=== PATIENT | male | born 1935 | race African-American/Black ===

== ENCOUNTER 2020-10-25 19:39 | Inpatient (IN) ==
--- NOTE | 2020-10-25 20:20 | Emergency Department Note ---
Weakness HPI General Chief complaint: Weakness Stated complaint: fever, increased weakness falls Time Seen by Provider: 10/25/20 19:58 Source: patient and RN notes reviewed Mode of arrival: EMS Limitations: no limitations History of Present Illness HPI Narrative: Narrative: This patient got his second Covid vaccine a couple of days ago but now has developed shortness of breath fever and is Covid positive. He is also had some diarrhea. No headache no chest pain slight cough. Generalized weakness. Related Data Home Medications Medication Instructions Recorded Confirmed alfuzosin 10 mg PO HS 02/14/16 09/29/16 allopurinol 300 mg PO HS 02/14/16 09/29/16 aspirin 81 mg CHEWED DAILY 02/14/16 09/29/16 atorvastatin 20 mg PO HS 02/14/16 09/29/16 colchicine 0.6 mg PO DAILY 02/14/16 09/29/16 meclizine 25 mg PO DAILYP PRN 02/14/16 09/29/16 brimonidine-timolol 2 drp BOTH EYES Q12H 05/28/16 09/29/16 budesonide-formoterol 2 puff IH BID 05/28/16 09/29/16 difluprednate 1 drp OU DAILY 05/28/16 09/29/16 loteprednol etabonate 1 drp RIGHT EYE DAILY 07/08/16 09/29/16 Symbicort Aero See Rx Instructions INHALATION 07/23/16 09/29/16 difluprednate 0.05 % eye drops See Rx Instructions OPHTHALMIC 07/23/16 09/29/16 .COMPLEX ferrous gluconate 324 mg (36 mg See Rx Instructions PO QDAY 07/23/16 09/29/16 iron) tablet fexofenadine 180 mg tablet 180 mg PO QDAY 07/23/16 09/29/16 propranolol 20 mg tablet 10 mg PO .COMPLEX 07/23/16 09/29/16 Previous Rx's Medication Instructions Recorded polyethylene glycol 3350 17 17 g PO BID #1054 each 06/04/17 gram/dose oral powder Allergies Allergy/AdvReac Type Severity Reaction Status Date / Time No Known Drug Allergies Allergy Verified 09/29/16 14:32 Review of Systems ROS ROS Narrative: Narrative: All systems ED: reviewed and negative except as stated. PFSH Narrative Patient History Narrative: Narrative: Medical/Surgical/Family History All Active Problems (Updated 10/25/20 @ 21:33 by Omar Keith MD) COVID-19 (Acute) Abdominal aortic aneurysm greater than 39 mm in diameter (Acute) Ulceration of rectal mucous membrane (Acute) Glaucoma (Chronic) Hypertension (Chronic) COPD (chronic obstructive pulmonary disease) (Chronic) CAD (coronary artery disease) (Chronic) Equinus deformity of foot, acquired (Chronic) Hammertoe (Chronic) Hallux valgus (Chronic) Elevated C-reactive protein (Chronic) Other disorders of plasma protein metabolism (Chronic) Ankle pain, chronic (Chronic) Sarcoidosis (Chronic) CKD (chronic kidney disease), stage II (Chronic) Lung nodule (Chronic) 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) Cerebral artery occlusion with cerebral infarction (Chronic) Orthostatic hypotension (Chronic) Leg pain, left (Chronic) Decreased carotid pulse (Chronic) Anemia, iron deficiency (Chronic) Dry skin (Chronic) Carotid artery stenosis (Chronic) Anemia (Chronic) Hyperlipidemia (Chronic) Pain, joint, shoulder, left (Chronic) Cough syncope (Chronic) Skin lesion (Chronic) Seborrheic keratosis (Chronic) Benign mole (Chronic) Lentigo (Chronic) Sebaceous cyst (Chronic) Benign positional vertigo (Chronic) Vertigo (Chronic) 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) Constipation (Chronic) Lower gastrointestinal hemorrhage (Acute) Near syncope (Chronic) Dyspnea (Chronic) Gout (Chronic) Renal insufficiency (Chronic) Hypercholesterolemia (Chronic) Anemia associated with acute blood loss (Chronic) Medical History (Updated 10/25/20 @ 21:33 by Omar Keith MD) Adenocarcinoma of prostate (Chronic) Anemia (Chronic) Anemia associated with acute blood loss (Chronic) Anemia, iron deficiency (Chronic) Ankle pain, chronic (Chronic) Benign mole (Chronic) trunk Benign positional vertigo (Chronic) CAD (coronary artery disease) (Chronic) Carotid artery stenosis (Chronic) left Cerebral artery occlusion 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), stage II (Chronic) Constipation (Chronic) COPD (chronic obstructive pulmonary disease) (Chronic) Cough syncope (Chronic) Decreased carotid pulse (Chronic) Dry skin (Chronic) Dyspnea (Chronic) Elevated C-reactive protein (Chronic) Equinus deformity of foot, acquired (Chronic) Glaucoma (Chronic) Gout (Chronic) Hallux valgus (Chronic) Hammertoe (Chronic) Hypercholesterolemia (Chronic) Hyperlipidemia (Chronic) Hypertension (Chronic) 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) Leg pain, left (Chronic) Lentigo (Chronic) Lower gastrointestinal hemorrhage (Acute) Lung nodule (Chronic) Near syncope (Chronic) Orthostatic hypotension (Chronic) Other disorders of plasma protein metabolism (Chronic) Pain, joint, shoulder, left (Chronic) Renal insufficiency (Chronic) Sarcoidosis (Chronic) Sebaceous cyst (Chronic) Seborrheic keratosis (Chronic) Skin lesion (Chronic) Vertigo (Chronic) Vertigo of central origin (Chronic) Surgical History (Updated 01/29/17 @ 14:28 by [employer]) History of left knee replacement (Chronic) 2009 plus two other procedures History of left shoulder replacement (Chronic) 2016 History of right hip replacement (Chronic) 2006 History of right knee joint replacement (Chronic 02/21/04) History of surgery (Chronic) Seed implantation-prostate carcinoma History of tonsillectomy and adenoidectomy (Chronic) 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) Family History (Updated 07/23/16 @ 16:09 by Eulalia Riojas) Other No pertinent family history Social History Smoking Status: Former smoker Alcohol Intake Frequency: a few times a month Substance Use: does not use Exam Narrative Narrative: Narrative: General Limitations: no limitations Head Head: Present atraumatic, normocephalic and normal inspection Eye Eye: Present normal appearance and EOMI; Absent scleral icterus and conjunctival injection ENT ENT: Present normal exam, normal oropharynx and mucous membranes moist Neck Neck: Present normal inspection and full ROM Chest Chest: Present normal inspection and symmetric chest wall rise Respiratory Respiratory: Present normal lung sounds bilaterally; Absent respiratory distress, rales/crackles and wheezes Cardiovascular Cardiovascular: Present regular rate, normal rhythm and normal heart sounds Adbominal Abdominal: Present soft; Absent distention and tenderness Extremities Extremities: Present normal inspection and full ROM; Absent pedal edema and pretibial edema Neurological Neurological: Present alert Psychiatric Psychiatric: Present normal affect Skin Skin: Present warm (WNL) and dry; Absent diaphoresis Course Vital Signs Vital signs: Vital Signs Temperature 102.1 F H 10/25/20 19:45 Pulse Rate 119 H 10/25/20 19:45 Respiratory Rate 20 10/25/20 19:45 Blood Pressure 181/107 10/25/20 19:45 Pulse Oximetry (%) 93 10/25/20 19:45 Temperature 102.7 F H 10/25/20 21:15 Pulse Rate 103 H 10/25/20 21:15 Respiratory Rate 16 10/25/20 21:15 Blood Pressure 117/67 10/25/20 21:01 Pulse Oximetry (%) 98 10/25/20 21:15 MDM MDM Narrative Medical decision making narrative: Narrative: This patient has Covid 19 syndrome and will be admitted to the hospital by Dr. Lugo. I ordered blood cultures gave Rocephin and Zithromax and Decadron. His GFR is too low to give remdesivir Lab Data Lab results reviewed: Yes I reviewed the patient's lab results. Lab results narrative: Patient was Covid positive his creatinine today is 2.1 lactic acid 3.8 Result diagrams: 10/25/20 20:07 10/25/20 20:07 Labs: Lab Results 10/25/20 10/25/20 10/25/20 Range/Units 20:07 20:07 20:07 WBC 7.4 (4.5-11.0) K/mcL RBC 4.78 (4.50-5.90) M/mcL Hgb 13.9 (13.5-16.5) g/dL Hct 41.9 (41.0-55.0) % MCV 87.7 (80.0-100.0) fL MCH 29.1 (26.0-34.0) pg MCHC 33.2 (31.0-36.0) g/dL RDW 13.2 (11.5-14.5) % Plt Count 128 L (140-440) K/mcL MPV 11.2 H (7.4-10.4) fL Neut % (Auto) 66.9 (38.0-78.0) % Lymph % (Auto) 26.8 (15.0-49.0) % [place] % (Auto) 6.2 (1.0-12.0) % Eos % (Auto) 0 (0.0-7.0) % Baso % (Auto) 0.1 (0.0-2.0) % Lymph # (Auto) 1.98 (1.50-4.80) K/mcL [place] # (Auto) 0.46 (0.10-0.90) K/mcL Eos # (Auto) 0 (0.00-0.70) K/mcL Baso # (Auto) 0.01 (0.00-0.20) K/mcL Absolute Neutrophils 4.94 (1.80-8.00) K/mcL VBG Lactic Acid 3.8 H (0.5-2.0) mmol/L Sodium 135 (133-145) mmol/L Potassium 4.6 (3.3-5.1) mmol/L Chloride 97 (96-108) mmol/L Carbon Dioxide 22 (22-30) mmol/L Anion Gap 16.0 (8.0-16.0) BUN 48 H (8-23) mg/dL Creatinine 2.1 H (0.7-1.2) mg/dL GFR Calculation 28 Glucose 114 H (70-105) mg/dL Calcium 9.2 (8.6-10.4) mg/dL Total Bilirubin 0.9 (0.1-1.0) mg/dL AST 33 (<40) U/L ALT 17 (<40) U/L Alkaline Phosphatase 72 (39-117) U/L Total Protein 8.1 (5.9-8.4) gm/dL Albumin 3.8 (3.2-5.2) gm/dL Globulin 4.3 H (2.2-3.7) gm/dL Albumin/Globulin Ratio 0.9 L (1.0-2.3) ED POC Tests ED POC Tests: [facility] - SARS Antigen Positive Radiology Data Radiology results reviewed: Yes I reviewed the patient's radiology results. Radiology results narrative: Chest x-ray was not very remarkable Discharge Plan Patient/Caregiver Discharge Instructions Pt seen by CHART CLERK/PA only: No Clinical Impression: COVID-19 Patient Disposition: Xfer As Inpt ([facility]) Follow up with: Viktoriya Fraire ARNP [Primary Care Provider] - Prescriptions: No Action polyethylene glycol 3350 17 gram/dose powder 17 g PO BID Qty: 1054 RF: 12 Symbicort Aero See Rx Instructions INHALATION RF: 0 difluprednate [Durezol] 0.05 % drops See Rx Instructions OPHTHALMIC .COMPLEX RF: 0 ferrous gluconate 324 mg (36 mg iron) tablet See Rx Instructions PO QDAY RF: 0 propranolol 20 mg tablet 10 mg PO .COMPLEX RF: 0 fexofenadine 180 mg tablet 180 mg PO QDAY RF: 0 atorvastatin 20 MG tablet 20 mg PO HS RF: 0 meclizine 25 MG tablet 25 mg PO DAILYP PRN (Reason: Vertigo) RF: 0 aspirin 81 MG tablet,chewable 81 mg CHEWED DAILY RF: 0 allopurinol 300 MG tablet 300 mg PO HS RF: 0 alfuzosin 10 MG tablet extended release 24 hr 10 mg PO HS RF: 0 colchicine 0.6 MG tablet 0.6 mg PO DAILY RF: 0 budesonide-formoterol 10.2 GM HFA aerosol inhaler 2 puff IH BID RF: 0 brimonidine-timolol 5 ML drops 2 drp BOTH EYES Q12H RF: 0 difluprednate 5 ML drops 1 drp OU DAILY RF: 0 loteprednol etabonate 5 ML drops,suspension 1 drp RIGHT EYE DAILY RF: 0
[2020-10-25] MEDS ORDERED: ACETAMINOPHEN 325 MG TABLET PO ONE (20:21)
[2020-10-25 20:55] LABS: Basophils # (Auto) 0.01 K/mcL (0.00-0.20); Basophils % (Auto) 0.1 % (0.0-2.0); Eosinophils # (Auto) 0 K/mcL (0.00-0.70); Eosinophils % (Auto) 0 % (0.0-7.0); Hematocrit 41.9 % (41.0-55.0); Hemoglobin 13.9 g/dL (13.5-16.5); Lymphocytes # (Auto) 1.98 K/mcL (1.50-4.80); Lymphocytes % (Auto) 26.8 % (15.0-49.0); Mean Cell Volume 87.7 fL (80.0-100.0); Mean Corpuscular HGB Conc 33.2 g/dL (31.0-36.0); Mean Platelet Volume 11.2 fL (7.4-10.4); Monocytes # (Auto) 0.46 K/mcL (0.10-0.90); Monocytes % (Auto) 6.2 % (1.0-12.0); Neutrophils % (Auto) 66.9 % (38.0-78.0); Platelet Count 128 K/mcL (140-440); RBC 4.78 M/mcL (4.50-5.90); Red Cell Distribution Width 13.2 % (11.5-14.5); WBC 7.4 K/mcL (4.5-11.0)
[2020-10-25] MEDS ORDERED: 0.9 % SODIUM CHLORIDE 1,000 ML IV ONE (21:05)
[2020-10-25] MEDS ORDERED: cefTRIAXone 1 GM VIAL IV ONE (21:09)
[2020-10-25] MEDS ORDERED: AZITHROMYCIN 500 MG in DEXTROSE 5% IN WATER 250 ML IV ONE (21:09)
[2020-10-25 21:12] LABS: ALT/SGPT 17 U/L (<40); AST/SGOT 33 U/L (<40); Albumin 3.8 gm/dL (3.2-5.2); Albumin/Globulin Ratio 0.9 (1.0-2.3); Alkaline Phosphatase 72 U/L (39-117); Bilirubin,Total 0.9 mg/dL (0.1-1.0); Blood Urea Nitrogen 48 mg/dL (8-23); Calcium 9.2 mg/dL (8.6-10.4); Carbon Dioxide 22 mmol/L (22-30); Chloride 97 mmol/L (96-108); Globulin 4.3 gm/dL (2.2-3.7); Glomerular Filtration Rate 28; Glucose 114 mg/dL (70-105)
[2020-10-25] MEDS ORDERED: DEXAMETHASONE 10 MG/ML VIAL IV ONE (21:29)
--- NOTE | 2020-10-25 21:41 | Internal Med History&Physical ---
HPI History of Present Illness Patient information: Note initiated : 10/25/20 at 9:41 pm Service Date, if different from initiated Date: [] Patient: Mars Faye a 85 y/o M admitted on for fever, increased weakness falls. Chief Complaint: History of present illness: Mr. Faye is a 85 year old M with a history of scleroderma/COPD/AAA who lives with his in [place]. Patient presents to the ER with worsening shortness of breath, fever over the last 24 hours. He has become profoundly weak limiting his ADLs. Initial work-up was consistent with COVID-19 pneumonia on chest imaging,positive Zo. Patient was hypoxic requiring 2 L oxygen/elevated lactate at 3.8, acute kidney injury with creatinine 2.1. Patient was started on antibiotic coverage after cultures were drawn. Hospitalist service was consulted. Notably patient just received his second Covid immunization couple of days ago. At the time of evaluation patient is alert. He was able to answer most the questions. He is in moderate respiratory distress requiring 2 L oxygen. He endorses to history as above. Denies diarrhea, dysuria, headache, photophobia endorses myalgia, weakness, sweats chills and fever. He denies nausea Review of systems 10 point review system was performed and is negative except for ones discussed above PFSH PFSH All Active Problems (Updated 10/25/20 @ 21:33 by Omar Keith MD) COVID-19 (Acute) Abdominal aortic aneurysm greater than 39 mm in diameter (Acute) Ulceration of rectal mucous membrane (Acute) Glaucoma (Chronic) Hypertension (Chronic) COPD (chronic obstructive pulmonary disease) (Chronic) CAD (coronary artery disease) (Chronic) Equinus deformity of foot, acquired (Chronic) Hammertoe (Chronic) Hallux valgus (Chronic) Elevated C-reactive protein (Chronic) Other disorders of plasma protein metabolism (Chronic) Ankle pain, chronic (Chronic) Sarcoidosis (Chronic) CKD (chronic kidney disease), stage II (Chronic) Lung nodule (Chronic) 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) Cerebral artery occlusion with cerebral infarction (Chronic) Orthostatic hypotension (Chronic) Leg pain, left (Chronic) Decreased carotid pulse (Chronic) Anemia, iron deficiency (Chronic) Dry skin (Chronic) Carotid artery stenosis (Chronic) Anemia (Chronic) Hyperlipidemia (Chronic) Pain, joint, shoulder, left (Chronic) Cough syncope (Chronic) Skin lesion (Chronic) Seborrheic keratosis (Chronic) Benign mole (Chronic) Lentigo (Chronic) Sebaceous cyst (Chronic) Benign positional vertigo (Chronic) Vertigo (Chronic) 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) Constipation (Chronic) Lower gastrointestinal hemorrhage (Acute) Near syncope (Chronic) Dyspnea (Chronic) Gout (Chronic) Renal insufficiency (Chronic) Hypercholesterolemia (Chronic) Anemia associated with acute blood loss (Chronic) Medical History (Updated 10/25/20 @ 21:33 by Omar Keith MD) Adenocarcinoma of prostate (Chronic) Anemia (Chronic) Anemia associated with acute blood loss (Chronic) Anemia, iron deficiency (Chronic) Ankle pain, chronic (Chronic) Benign mole (Chronic) trunk Benign positional vertigo (Chronic) CAD (coronary artery disease) (Chronic) Carotid artery stenosis (Chronic) left Cerebral artery occlusion 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), stage II (Chronic) Constipation (Chronic) COPD (chronic obstructive pulmonary disease) (Chronic) Cough syncope (Chronic) Decreased carotid pulse (Chronic) Dry skin (Chronic) Dyspnea (Chronic) Elevated C-reactive protein (Chronic) Equinus deformity of foot, acquired (Chronic) Glaucoma (Chronic) Gout (Chronic) Hallux valgus (Chronic) Hammertoe (Chronic) Hypercholesterolemia (Chronic) Hyperlipidemia (Chronic) Hypertension (Chronic) 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) Leg pain, left (Chronic) Lentigo (Chronic) Lower gastrointestinal hemorrhage (Acute) Lung nodule (Chronic) Near syncope (Chronic) Orthostatic hypotension (Chronic) Other disorders of plasma protein metabolism (Chronic) Pain, joint, shoulder, left (Chronic) Renal insufficiency (Chronic) Sarcoidosis (Chronic) Sebaceous cyst (Chronic) Seborrheic keratosis (Chronic) Skin lesion (Chronic) Vertigo (Chronic) Vertigo of central origin (Chronic) Surgical History (Updated 01/29/17 @ 14:28 by [employer]) History of left knee replacement (Chronic) 2009 plus two other procedures History of left shoulder replacement (Chronic) 2016 History of right hip replacement (Chronic) 2006 History of right knee joint replacement (Chronic 02/21/04) History of surgery (Chronic) Seed implantation-prostate carcinoma History of tonsillectomy and adenoidectomy (Chronic) 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) Family History (Updated 07/23/16 @ 16:09 by Eulalia Riojas) Other No pertinent family history Social History marital status: occupational status: retired physical activity: additional details: [employer] smoking status: Never smoker alcohol intake frequency: a few times a month substance use type: does not use MEDS/ALLERGIES Home Medications and Allergies Home Medications Medication Instructions Recorded Confirmed Type budesonide-formoterol 2 puff IH BID 05/28/16 09/29/16 History difluprednate 1 drp OU DAILY 05/28/16 09/29/16 History loteprednol etabonate 1 drp RIGHT EYE DAILY 07/08/16 09/29/16 History Symbicort Aero See Rx Instructions INHALATION 07/23/16 09/29/16 History difluprednate 0.05 % eye drops See Rx Instructions OPHTHALMIC 07/23/16 09/29/16 History .COMPLEX brimonidine 1 % OPHTHALMIC (EYE) BID 10/26/20 10/26/20 History magnesium oxide 420 mg PO QDAY 10/26/20 10/26/20 History prednisolone acetate 1 drp OPHTHALMIC (EYE) DAILY 10/26/20 10/26/20 History timolol maleate 1 % OPHTHALMIC (EYE) BID 10/26/20 10/26/20 History Allergies Allergy/AdvReac Type Severity Reaction Status Date / Time No Known Drug Allergies Allergy Verified 09/29/16 14:32 EXAM Constitutional Vitals: Temp Pulse Resp BP Pulse Ox 102.5 F H 111 H 18 101/67 96 10/25/20 21:31 10/25/20 21:31 10/25/20 21:31 10/25/20 21:31 10/25/20 21:31 Anxious currently on 2 L oxygen Head normocephalic Oral cavity moist No ear nose discharge Eye movement symmetrical Neck supple no lymphadenopathy S1-S2 regular tachycardia Minimal labored breathing/2 L oxygen Nondistended nontender abdomen Lower extremity no cyanosis clubbing or joint swelling Skin no suspicious lesion Psych no hallucination Neuro normal higher function, GCS 15 DATA Data Completed and Pending Labs: Labs from last 24 hours 10/25/20 10/25/20 10/25/20 20:07 20:07 20:07 WBC 7.4 RBC 4.78 Hgb 13.9 Hct 41.9 MCV 87.7 MCH 29.1 MCHC 33.2 RDW 13.2 Plt Count 128 L MPV 11.2 H Neut % (Auto) 66.9 Lymph % (Auto) 26.8 [place] % (Auto) 6.2 Eos % (Auto) 0 Baso % (Auto) 0.1 Lymph # (Auto) 1.98 [place] # (Auto) 0.46 Eos # (Auto) 0 Baso # (Auto) 0.01 Absolute Neutrophils 4.94 VBG Lactic Acid 3.8 H Sodium 135 Potassium 4.6 Chloride 97 Carbon Dioxide 22 Anion Gap 16.0 BUN 48 H Creatinine 2.1 H GFR Calculation 28 Glucose 114 H Calcium 9.2 Total Bilirubin 0.9 AST 33 ALT 17 Alkaline Phosphatase 72 Total Protein 8.1 Albumin 3.8 Globulin 4.3 H Albumin/Globulin Ratio 0.9 L A/P Narrative A/P Narrative: * Covid pneumonia-GFR precludes remdesivir use. On dexamethasone/empiric antib iotic coverage for superinfection * Sepsis with elevated lactate and endorgan dysfunction. Continue crystalloid/venous lactate trending/cultures/broad antibiotic coverage * Acute kidney injury secondary sepsis endorgan dysfunction. Continue crystalloid/monitor renal function/avoid nephrotoxins * Severe weakness secondary to COVID-19. Continue directed therapies * History of gout continue allopurinol * History of hyperlipidemia on statin * History of CAD on aspirin statin/propranolol glaucoma/brimonidine * History of COPD not on oxygen, on Symbicort/budesonide * DNR * Prophylaxis Heparin Plan * inpatient PCU admission * Broad antibiotic coverage * Inflammatory maxilla/dexamethasone/contact precaution * Pre-existing medical condition management as above * Close monitoring monitoring * PT OT nutrition support * Discharge planning Time Spent With Patient Time: Total time spent is greater than 50% in coordination of care (as d ocumented) at patient's floor/unit and/or counseling patient:
[2020-10-25] MEDS ORDERED: POTASSIUM CHLORIDE 40 MEQ in DEXTROSE 5% IN WATER 500 ML IV PRN (22:52)
[2020-10-25] MEDS ORDERED: ONDANSETRON 4 MG/2 ML VIAL IV PRN (22:52)
[2020-10-25] MEDS ORDERED: ACETAMINOPHEN 325 MG TABLET PO PRN (22:52)
[2020-10-25] MEDS ORDERED: NEUTRA PHOS 1 PACKET PO PRN (22:52)
[2020-10-25] MEDS ORDERED: BISACODYL 10 MG SUPP.RECT PR PRN (22:52)
[2020-10-25] MEDS ORDERED: MELATONIN 3 MG TABLET PO PRN (22:52)
[2020-10-25] MEDS ORDERED: VANCOMYCIN PER PHARMACY IV SCH (22:52)
[2020-10-25] MEDS ORDERED: POTASSIUM CHLORIDE 20 MEQ PACKET PO PRN (22:52)
[2020-10-25] MEDS ORDERED: MAGNESIUM SULFATE 2 GM/50 ML BAG IV PRN (22:52)
[2020-10-25] MEDS ORDERED: POLYETHYLENE GLYCOL 3350 17 GM PACKET PO PRN (22:52)
[2020-10-25] MEDS ORDERED: ONDANSETRON 4 MG ODT TABLET SL PRN (22:52)
[2020-10-25] MEDS ORDERED: ACETAMINOPHEN 650 MG/65 ML BAG IV PRN (22:52)
[2020-10-25] MEDS ORDERED: CEFEPIME 2 GM in DEXTROSE 5% IN WATER 50 ML IV SCH (22:52)
[2020-10-25] MEDS ORDERED: AZITHROMYCIN 500 MG in DEXTROSE 5% IN WATER 250 ML IV SCH (22:52)
[2020-10-25] MEDS ORDERED: VANCOMYCIN 1,250 MG in 0.9 % SODIUM CHLORIDE 500 ML IV ONE (22:53)
[2020-10-25] MEDS ORDERED: CEFEPIME 1 GM VIAL ONE (23:07)
[2020-10-25] MEDS: PIPERACILLIN SODIUM/TAZOBACTAM 3.375 GM in DEXTROSE 5% IN WATER 50 ML IV SCH (23:44)
[2020-10-25] MEDS: 0.9 % SODIUM CHLORIDE 10 ML SYRINGE IV SCH (23:46)
[2020-10-26] MEDS: 0.9 % SODIUM CHLORIDE 1,000 ML IV SCH (00:15)
[2020-10-26] MEDS: PIPERACILLIN SODIUM/TAZOBACTAM 3.375 GM in DEXTROSE 5% IN WATER 50 ML IV SCH (05:30)
[2020-10-26] MEDS: 0.9 % SODIUM CHLORIDE 10 ML SYRINGE IV SCH ×3 (05:31→20:32)
--- NOTE | 2020-10-26 05:43 | XRay Report ---
INDICATION: sob, covid pos TECHNIQUE: AP portable semiupright chest x-ray COMPARISON: Previous chest x-rays dated 07/09/2016 and 07/07/2016 FINDINGS: Lungs:Mild bibasilar interstitial infiltrate, left worse than right. Findings are nonspecific. Findings may be due to benign volume loss. This patient is covid positive and covid pneumonia is possible. Findings are new since 07/09/2016 No parenchymal consolidation There is a small focal density in the right upper lung. This may be a small mass. Appearance is relatively benign but appears to be new since 07/09/2016. Chest CT scan is recommended for further evaluation. Heart, vascular:No significant cardiomegaly. Pulmonary vascularity is normal. No pulmonary edema or pulmonary congestion Mediastinum, vanna:No mediastinal widening. No hilar mass Pleura:No pleural fluid. No pleural-based mass or calcification Skeletal:Negative. IMPRESSION: 1. Mild bibasilar infiltrate, left worse than right 2. Possible right upper lung nodule, new since 07/09/2016 Interpreted and Authenticated by: Remy Nixon 10/26/20
[2020-10-26 06:33] LABS: Basophils # (Auto) 0.01 K/mcL (0.00-0.20); Basophils % (Auto) 0.2 % (0.0-2.0); Eosinophils # (Auto) 0 K/mcL (0.00-0.70); Eosinophils % (Auto) 0 % (0.0-7.0); Hematocrit 36.7 % (41.0-55.0); Hemoglobin 11.9 g/dL (13.5-16.5); Lymphocytes # (Auto) 0.95 K/mcL (1.50-4.80); Lymphocytes % (Auto) 20.2 % (15.0-49.0); Mean Cell Volume 89.7 fL (80.0-100.0); Mean Corpuscular HGB Conc 32.4 g/dL (31.0-36.0); Mean Platelet Volume 11.5 fL (7.4-10.4); Monocytes # (Auto) 0.21 K/mcL (0.10-0.90); Monocytes % (Auto) 4.5 % (1.0-12.0); Neutrophils % (Auto) 75.1 % (38.0-78.0); Platelet Count 101 K/mcL (140-440); RBC 4.09 M/mcL (4.50-5.90); Red Cell Distribution Width 13.2 % (11.5-14.5); WBC 4.7 K/mcL (4.5-11.0)
[2020-10-26 07:05] LABS: ALT/SGPT 15 U/L (<40); AST/SGOT 34 U/L (<40); Albumin 3.1 gm/dL (3.2-5.2); Albumin/Globulin Ratio 0.8 (1.0-2.3); Alkaline Phosphatase 59 U/L (39-117); Bilirubin,Direct < 0.2 mg/dL (<0.3); Bilirubin,Total 0.6 mg/dL (0.1-1.0); Blood Urea Nitrogen 48 mg/dL (8-23); Calcium 8.5 mg/dL (8.6-10.4); Carbon Dioxide 20 mmol/L (22-30); Chloride 101 mmol/L (96-108); Globulin 3.7 gm/dL (2.2-3.7); Glomerular Filtration Rate 32; Glucose 173 mg/dL (70-105); Lactate Dehydrogenase 280 U/L (135-225); Phosphorous 3.8 mg/dL (2.5-4.5); Triglycerides 110 mg/dL (<150)
[2020-10-26] MEDS ORDERED: BUDESONIDE 1 PUFF INHALER INH SCH (09:00)
[2020-10-26] MEDS: HEPARIN 5,000 UNIT/ML VIAL SQ SCH ×2 (10:19→20:30)
[2020-10-26] MEDS: DOCUSATE SODIUM 100 MG CAPSULE PO SCH ×2 (10:20→20:31)
[2020-10-26] MEDS: DEXAMETHASONE 4 MG TABLET PO SCH (10:20)
[2020-10-26] MEDS: MULTIVIT,THER IRON,CA,FA & MIN 1 TABLET PO SCH (10:20)
[2020-10-26] MEDS: CEFEPIME 1 GM in DEXTROSE 5% IN WATER 50 ML IV SCH ×2 (10:20→20:30)
--- NOTE | 2020-10-26 11:06 | Internal Med Progress Note ---
SUBJECTIVE Subjective Patient information: Note initiated : 10/26/20 at 11:03 am Service Date, if different from initiated Date: [] Patient: Mars Faye a 85 y/o M admitted on 10/25/20 for fever, increased weakness falls. Chief Complaint: [] Interval history: History of present illness: Mr. Faye is a 85 year old M with a history of scleroderma/COPD/AAA who lives with his in [place]. Patient presents to the ER with worsening shortness of breath, fever over the last 24 hours. He has become profoundly weak limiting his ADLs. Initial work-up was consistent with bibasilar pneumonia on chest imaging,positive COVID-19 Zo. Patient was hypoxic requiring 2 L oxygen/elevated lactate at 3.8, acute kidney injury with creatinine 2.1. Patient was started on antibiotic coverage after cultures were drawn. Hospitalist service was consulted. Notably patient just received his second Covid immunization couple of days ago. At the time of evaluation patient is alert. He was able to answer most the questions. He is in moderate respiratory distress requiring 2 L oxygen. He endorses to history as above. Denies diarrhea, dysuria, headache, photophobia endorses myalgia, weakness, sweats chills and fever. He denies nausea 10/26-patient clinically improved. No overnight events. No concerns per staff. Now on room air. Tolerating diet. Feels a lot better. White count 4.7creatinine down from 2.1-1.9. Constitutional Vitals: Vital Signs Temp Pulse Resp BP Pulse Ox 97.7 F 66 15 115/74 97 10/26/20 10:00 10/26/20 08:00 10/26/20 10:00 10/26/20 10:00 10/26/20 10:00 Period Temp Pulse Resp BP Sys/Harper Pulse Ox Last 24 Hr 96.7 F-103.4 F 63-119 13-22 93-181/59-107 91-98 Intake and Output 10/25/20 10/26/20 10/26/20 21:59 05:59 13:59 Intake Total 1000 528 600 Output Total 450 Balance 1000 78 600 Weight 80.739 kg 80.739 kg alert oriented On room air oxygen No telemetry events. Anxiety Intake & Output: Intake & Output 02/08/0410/26/20 10/26/20 21:59 05:59 13:59 Intake Total 1000 528 600 Output Total 450 Balance 1000 78 600 Weight 80.739 kg 80.739 kg Intake: IV 1000 288 600 Sodium Chloride 0.9% 1,000 ml @ 1000 Wide Open IV [facility] Rx#: [id number] Zithromax 500 mg In Dextrose 5% 238 in Water 250 ml @ 250 mls/hr IV ONCE ONE Rx#:[id number] Maxipime 2 gm In Dextrose 5% in 50 Water 50 ml @ 100 mls/hr IV Q12H [facility] Rx#:[id number] Zosyn 3.375 gm In Dextrose 5% 50 50 in Water 50 ml @ 100 mls/hr IV Q6H [facility] Rx#:[id number] Vancomycin 1,250 mg In Sodium 500 Chloride 0.9% 500 ml @ 333.3 mls/hr IV ONCE ONE Rx#: [id number] Oral 240 Output: Urine Catheter Amount 450 Other: Meal Breakfast Percent of Meal Consumed 75% Feeding Ability Independent Urine Appearance Clear Uretheral (Jj) Clear Clear Urine Color Dark Yellow Uretheral (Jj) Dark Yellow Dark Yellow Urine Odor Strong Uretheral (Jj) Normal Normal OBJ DATA Labs CBC & Chem 7: 10/26/20 05:10 10/26/20 05:10 Labs: Abnormal Lab Results 10/26/20 10/26/20 10/26/20 05:10 05:10 05:10 RBC 4.09 L Hgb 11.9 L Hct 36.7 L Plt Count 101 L MPV 11.5 H Lymph # (Auto) 0.95 L D-Dimer 9.93 H VBG Lactic Acid Carbon Dioxide 20 L BUN 48 H Creatinine 1.9 H Glucose 173 H Uric Acid 9.0 H Calcium 8.5 L Lactate Dehydrogenase 280 H Albumin 3.1 L Globulin Albumin/Globulin Ratio 0.8 L Procalcitonin 10/26/20 10/25/20 10/25/20 05:10 20:07 20:07 RBC Hgb Hct Plt Count MPV Lymph # (Auto) D-Dimer VBG Lactic Acid 3.8 H Carbon Dioxide BUN 48 H Creatinine 2.1 H Glucose 114 H Uric Acid Calcium Lactate Dehydrogenase Albumin Globulin 4.3 H Albumin/Globulin Ratio 0.9 L Procalcitonin 0.32 H 10/25/20 20:07 RBC Hgb Hct Plt Count 128 L MPV 11.2 H Lymph # (Auto) D-Dimer VBG Lactic Acid Carbon Dioxide BUN Creatinine Glucose Uric Acid Calcium Lactate Dehydrogenase Albumin Globulin Albumin/Globulin Ratio Procalcitonin Meds: Medications Acetaminophen (Tylenol) 650 mg PO Q4-6HP PRN; Protocol PRN Reason: Per Pain Protocol/Fever > 101 Last Admin: 10/26/20 10:20 Dose: 650 mg Documented by: Bisacodyl (Dulcolax) 10 mg CA Q2-3DAYS PRN PRN Reason: Constipation Budesonide (Pulmicort) 2 puff INH BID [facility] Last Admin: 10/26/20 10:10 Dose: Not Given Documented by: Dexamethasone (Decadron) 6 mg PO DAILY [facility] Last Admin: 10/26/20 10:20 Dose: 6 mg Documented by: Docusate Sodium (Colace) 100 mg PO BID [facility] Last Admin: 10/26/20 10:20 Dose: 100 mg Documented by: Heparin Sodium (Porcine) (Heparin) 5,000 unit SQ Q12 [facility] Last Admin: 10/26/20 10:19 Dose: 5,000 unit Documented by: Potassium Chloride 40 meq/ (Dextrose) 520 mls @ 130 mls/hr IV UD PRN PRN Reason: K+ = or < 3.5 Acetaminophen (Ofirmev) 650 mg in 65 mls @ 130 mls/hr IV Q6HP PRN; Protocol PRN Reason: Per Pain Protocol/Fever > 101 Magnesium Sulfate (Magnesium Sulfate) 2 gm in 50 mls @ 50 mls/hr IV UD PRN PRN Reason: MG = or < 1.7 Sodium Chloride (Sodium Chloride 0.9%) 1,000 mls @ 50 mls/hr IV .Q20H [facility] Stop: 10/28/20 10:51 Last Admin: 10/26/20 00:15 Dose: 50 mls/hr Documented by: Cefepime HCl 1 gm/ Dextrose 50 mls @ 100 mls/hr IV Q12H [facility]; Protocol Last Admin: 10/26/20 10:20 Dose: 100 mls/hr Documented by: Azithromycin 500 mg/ Dextrose 250 mls @ 250 mls/hr IV DAILY [facility]; Protocol Stop: 10/27/20 09:59 Iron Carb/Multivit/[place]/Folic Acid (Multivitamin W/Minerals) 1 tab PO DAILY [facility] Last Admin: 10/26/20 10:20 Dose: 1 tab Documented by: Melatonin (Melatonin 3mg Tablet) 3 mg PO HSP PRN PRN Reason: Insomnia Ondansetron HCl (Zofran Odt) 4 mg SL Q4-6HP PRN; Protocol PRN Reason: Nausea And Vomiting Ondansetron HCl (Zofran) 4 mg IV Q4-6HP PRN; Protocol PRN Reason: Nausea And Vomiting Polyethylene Glycol (Miralax) 17 gm PO DAILYP PRN PRN Reason: Constipation Potassium Chloride (Klor-Con) 40 meq PO DAILYP PRN PRN Reason: K+ < 3.5 Potassium/Phosphorus/Sodium (Neutra Phos) 2 packet PO DAILY PRN PRN Reason: PHOS <2.5 Senna/Docusate Sodium (Senna Plus Tablet) 1 tab PO [facility] Sodium Chloride (Saline Flush) 10 ml IV Q8 [facility] Last Admin: 10/26/20 05:31 Dose: 10 ml Documented by: Vancomycin HCl (Vancomycin Per Pharmacy) 1 order IV UD [facility]; Protocol A/P Narrative A/P Narrative: * Covid 19 pneumonia-GFR precludes remdesivir use. 20 improving on dexamethasone/empiric antibiotic coverage for superinfection * Sepsis with elevated lactate and endorgan dysfunction. Clinical improvement noted on antibiotic coverage/management per guidelines * Acute kidney injury secondary sepsis endorgan dysfunction. Creatinine downtrending. Avoid nephrotoxins * Severe weakness secondary to COVID-19. Continue directed therapies * History of gout continue allopurinol * History of hyperlipidemia on statin * History of CAD on aspirin statin/propranolol glaucoma/brimonidine * History of COPD not on oxygen, on Symbicort/budesonide * DNR * Prophylaxis Heparin Plan * Continue antibiotic coverage * Continue dexamethasone * Pre-existing medical condition management as above * PT OT nutrition support Time Spent With Patient Time: Total time spent is greater than 50% in coordination of care (as documented) at patient's floor/unit and/or counseling patient: QUALITY VTE Deep Vein Thrombosis/Pulmonary Embolism Present on Admission: No
[2020-10-26] MEDS: AZITHROMYCIN 500 MG in DEXTROSE 5% IN WATER 250 ML IV SCH (12:25)
[2020-10-26] MEDS: SENNOSIDES/DOCUSATE SODIUM 1 TAB TABLET PO SCH (20:31)
[2020-10-27] MEDS: 0.9 % SODIUM CHLORIDE 1,000 ML IV SCH ×3 (00:34→23:26)
[2020-10-27] MEDS: 0.9 % SODIUM CHLORIDE 10 ML SYRINGE IV SCH ×3 (05:32→21:11)
[2020-10-27 06:49] LABS: Vancomycin,Random 5.6 ug/mL
[2020-10-27 07:04] LABS: Basophils # (Auto) 0 K/mcL (0.00-0.20); Basophils % (Auto) 0 % (0.0-2.0); Eosinophils # (Auto) 0 K/mcL (0.00-0.70); Eosinophils % (Auto) 0 % (0.0-7.0); Hematocrit 39.9 % (41.0-55.0); Hemoglobin 12.6 g/dL (13.5-16.5); Lymphocytes # (Auto) 1.33 K/mcL (1.50-4.80); Lymphocytes % (Auto) 14.1 % (15.0-49.0); Mean Cell Volume 92.6 fL (80.0-100.0); Mean Corpuscular HGB Conc 31.6 g/dL (31.0-36.0); Mean Platelet Volume 11.6 fL (7.4-10.4); Monocytes # (Auto) 0.52 K/mcL (0.10-0.90); Monocytes % (Auto) 5.5 % (1.0-12.0); Neutrophils % (Auto) 80.4 % (38.0-78.0); Platelet Count 119 K/mcL (140-440); RBC 4.31 M/mcL (4.50-5.90); Red Cell Distribution Width 13.1 % (11.5-14.5); WBC 9.4 K/mcL (4.5-11.0)
[2020-10-27 07:28] LABS: ALT/SGPT 22 U/L (<40); AST/SGOT 33 U/L (<40); Albumin 3.2 gm/dL (3.2-5.2); Albumin/Globulin Ratio 0.8 (1.0-2.3); Alkaline Phosphatase 61 U/L (39-117); Bilirubin,Direct < 0.2 mg/dL (<0.3); Bilirubin,Total 0.4 mg/dL (0.1-1.0); Blood Urea Nitrogen 47 mg/dL (8-23); Calcium 8.9 mg/dL (8.6-10.4); Carbon Dioxide 19 mmol/L (22-30); Chloride 105 mmol/L (96-108); Globulin 3.8 gm/dL (2.2-3.7); Glomerular Filtration Rate 46; Glucose 131 mg/dL (70-105); Lactate Dehydrogenase 267 U/L (135-225); Phosphorous 3.1 mg/dL (2.5-4.5); Triglycerides 123 mg/dL (<150); Uric Acid 7.7 mg/dL (2.5-8.0)
--- NOTE | 2020-10-27 08:23 | XRay Report ---
INDICATION: Interval Change TECHNIQUE: AP portable semiupright chest x-ray COMPARISON: Previous examinations dated 10/25/2020, 07/09/2016 FINDINGS: Lungs:Mild left basilar atelectasis or infiltrate is unchanged since 10/25/2020. No new pulmonary parenchymal abnormalities. Possible subtle right upper lobe nodule is again identified. Heart, vascular:No significant cardiomegaly. Pulmonary vascularity is normal. No pulmonary edema or pulmonary congestion Mediastinum, vanna:No mediastinal widening. No hilar mass Pleura:No pleural fluid. No pleural-based mass or calcification Skeletal:Negative. IMPRESSION: No significant interval change since 10/25/2020 Interpreted and Authenticated by: Remy Nixon 10/27/20
[2020-10-27] MEDS: DEXAMETHASONE 4 MG TABLET PO SCH (09:05)
[2020-10-27] MEDS: HEPARIN 5,000 UNIT/ML VIAL SQ SCH ×2 (09:06→21:11)
[2020-10-27] MEDS: AZITHROMYCIN 500 MG in DEXTROSE 5% IN WATER 250 ML IV SCH (09:07)
[2020-10-27] MEDS: CEFEPIME 1 GM in DEXTROSE 5% IN WATER 50 ML IV SCH ×2 (09:07→21:11)
[2020-10-27] MEDS: DOCUSATE SODIUM 100 MG CAPSULE PO SCH ×2 (09:08→21:10)
[2020-10-27] MEDS: MULTIVIT,THER IRON,CA,FA & MIN 1 TABLET PO SCH (09:08)
[2020-10-27] MEDS: VANCOMYCIN 1,500 MG in 0.9 % SODIUM CHLORIDE 500 ML IV SCH (10:29)
--- NOTE | 2020-10-27 10:41 | Internal Med Progress Note ---
SUBJECTIVE Subjective Patient information: Note initiated : 10/27/20 at 10:37 am Service Date, if different from initiated Date: [] Patient: Mars Faye a 85 y/o M admitted on 10/25/20 for fever, increased weakness falls. Chief Complaint: [] Interval history: History of present illness: Mr. Faye is a 85 year old M with a history of scleroderma/COPD/AAA who lives with his in [place]. Patient presents to the ER with worsening shortness of breath, fever over the last 24 hours. He has become profoundly weak limiting his ADLs. Initial work-up was consistent with bibasilar pneumonia on chest imaging,positive COVID-19 Zo. Patient was hypoxic requiring 2 L oxygen/elevated lactate at 3.8, acute kidney injury with creatinine 2.1. Patient was started on antibiotic coverage after cultures were drawn. Hospitalist service was consulted. Notably patient just received his second Covid immunization couple of days ago. At the time of evaluation patient is alert. He was able to answer most the questions. He is in moderate respiratory distress requiring 2 L oxygen. He endorses to history as above. Denies diarrhea, dysuria, headache, photophobia endorses myalgia, weakness, sweats chills and fever. He denies nausea 10/26-patient clinically improved. No overnight events. No concerns per staff. Now on room air. Tolerating diet. Feels a lot better. White count 4.7creatinine down from 2.1-1.9. 10/27-patient clinically improved however blood cultures positive for gram- positive cocci. Echocardiogram ordered. Creatinine downtrending at 1.[address] chest abdomen pelvis to rule out intra-abdominal/additional focus of source of bacteremia. Continue surveillance cultures/antibiotic coverage. De- escalate antibiotics based on sensitivities. White count 9.4 today. 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 Constitutional Vitals: Vital Signs Temp Pulse Resp BP Pulse Ox 97.7 F 85 14 124/75 95 10/27/20 08:01 10/27/20 10:00 10/27/20 10:00 10/27/20 10:00 10/27/20 10:00 Period Temp Pulse Resp BP Sys/Harper Pulse Ox Last 24 Hr 96.6 F-99.4 F 60-85 12-19 104-138/65-78 91-99 Intake and Output 10/26/20 10/27/20 10/27/20 21:59 05:59 13:59 Intake Total 1000 240 290 Output Total 975 426 Balance 25 -186 290 Weight 80.014 kg Alert oriented, no labored breathing Nondistended abdomen No rash or joint swelling No anxiety On room air Intake & Output: Intake & Output 10/26/20 10/27/20 10/27/20 21:59 05:59 13:59 Intake Total 1000 240 290 Output Total 975 426 Balance 25 -186 290 Weight 80.014 kg Intake: IV 1000 50 Sodium Chloride 0.9% 1,000 ml @ 1000 50 mls/hr IV .Q20H [facility] Rx#: [id number] Maxipime 1 gm In Dextrose 5% in 50 Water 50 ml @ 100 mls/hr IV Q12H [facility] Rx#:[id number] Oral 240 240 Output: Urine Catheter Amount 350 100 Void Amount 325 # of times incontinent of urine 1 Stool 625 Other: Meal Breakfast Percent of Meal Consumed 75% Feeding Ability Independent Urine Appearance Clear Clear Uretheral (Jj) Clear Clear Urine Color Dark Yellow Dark Yellow Uretheral (Jj) Dark Yellow Dark Yellow Urine Odor Normal Strong Uretheral (Jj) Normal Normal Stool Size Moderate Moderate Stool Color Brown Brown Stool Consistency Liquid Liquid Loose # Voids 1 OBJ DATA Labs CBC & Chem 7: 10/27/20 05:25 10/27/20 05:25 Labs: Abnormal Lab Results 10/27/20 10/27/20 10/27/20 05:25 05:25 05:25 RBC 4.31 L Hgb 12.6 L Hct 39.9 L Plt Count 119 L MPV 11.6 H Neut % (Auto) 80.4 H Lymph % (Auto) 14.1 L Lymph # (Auto) 1.33 L D-Dimer 7.80 H VBG Lactic Acid Carbon Dioxide 19 L BUN 47 H Creatinine 1.4 H Glucose 131 H Uric Acid Calcium Lactate Dehydrogenase 267 H Albumin Globulin 3.8 H Albumin/Globulin Ratio 0.8 L Procalcitonin 10/27/20 10/26/20 10/26/20 05:25 05:10 05:10 RBC Hgb Hct Plt Count MPV Neut % (Auto) Lymph % (Auto) Lymph # (Auto) D-Dimer 9.93 H VBG Lactic Acid Carbon Dioxide 20 L BUN 48 H Creatinine 1.9 H Glucose 173 H Uric Acid 9.0 H Calcium 8.5 L Lactate Dehydrogenase 280 H Albumin 3.1 L Globulin Albumin/Globulin Ratio 0.8 L Procalcitonin 0.29 H 10/26/20 10/26/20 10/25/20 05:10 05:10 20:07 RBC 4.09 L Hgb 11.9 L Hct 36.7 L Plt Count 101 L MPV 11.5 H Neut % (Auto) Lymph % (Auto) Lymph # (Auto) 0.95 L D-Dimer VBG Lactic Acid 3.8 H Carbon Dioxide BUN Creatinine Glucose Uric Acid Calcium Lactate Dehydrogenase Albumin Globulin Albumin/Globulin Ratio Procalcitonin 0.32 H 10/25/20 10/25/20 20:07 20:07 RBC Hgb Hct Plt Count 128 L MPV 11.2 H Neut % (Auto) Lymph % (Auto) Lymph # (Auto) D-Dimer VBG Lactic Acid Carbon Dioxide BUN 48 H Creatinine 2.1 H Glucose 114 H Uric Acid Calcium Lactate Dehydrogenase Albumin Globulin 4.3 H Albumin/Globulin Ratio 0.9 L Procalcitonin Meds: Medications Acetaminophen (Tylenol) 650 mg PO Q4-6HP PRN; Protocol PRN Reason: Per Pain Protocol/Fever > 101 Bisacodyl (Dulcolax) 10 mg [place] Q2-3DAYS PRN PRN Reason: Constipation Dexamethasone (Decadron) 6 mg PO DAILY [facility] Last Admin: 10/27/20 09:05 Dose: 6 mg Documented by: Docusate Sodium (Colace) 100 mg PO BID [facility] Last Admin: 10/27/20 09:08 Dose: Not Given Documented by: Heparin Sodium (Porcine) (Heparin) 5,000 unit SQ Q12 [facility] Last Admin: 10/27/20 09:06 Dose: 5,000 unit Documented by: Potassium Chloride 40 meq/ (Dextrose) 520 mls @ 130 mls/hr IV UD PRN PRN Reason: K+ = or < 3.5 Acetaminophen (Ofirmev) 650 mg in 65 mls @ 130 mls/hr IV Q6HP PRN; Protocol PRN Reason: Per Pain Protocol/Fever > 101 Magnesium Sulfate (Magnesium Sulfate) 2 gm in 50 mls @ 50 mls/hr IV UD PRN PRN Reason: MG = or < 1.7 Sodium Chloride (Sodium Chloride 0.9%) 1,000 mls @ 50 mls/hr IV .Q20H [facility] Stop: 10/28/20 10:51 Last Admin: 10/27/20 00:34 Dose: 50 mls/hr Documented by: Cefepime HCl 1 gm/ Dextrose 50 mls @ 100 mls/hr IV Q12H [facility]; Protocol Last Admin: 10/27/20 09:07 Dose: 100 mls/hr Documented by: Vancomycin HCl 1,500 mg/ (Sodium Chloride) 500 mls @ 333.3 mls/hr IV Q24H [facility] Last Admin: 10/27/20 10:29 Dose: 333.3 mls/hr Documented by: Iron Carb/Multivit/[place]/Folic Acid (Multivitamin W/Minerals) 1 tab PO DAILY [facility] Last Admin: 10/27/20 09:08 Dose: 1 tab Documented by: Melatonin (Melatonin 3mg Tablet) 3 mg PO HSP PRN PRN Reason: Insomnia Ondansetron HCl (Zofran Odt) 4 mg SL Q4-6HP PRN; Protocol PRN Reason: Nausea And Vomiting Ondansetron HCl (Zofran) 4 mg IV Q4-6HP PRN; Protocol PRN Reason: Nausea And Vomiting Polyethylene Glycol (Miralax) 17 gm PO DAILYP PRN PRN Reason: Constipation Potassium Chloride (Klor-Con) 40 meq PO DAILYP PRN PRN Reason: K+ < 3.5 Potassium/Phosphorus/Sodium (Neutra Phos) 2 packet PO DAILY PRN PRN Reason: PHOS <2.5 Senna/Docusate Sodium (Senna Plus Tablet) 1 tab PO HS [facility] Last Admin: 10/26/20 20:31 Dose: Not Given Documented by: Sodium Chloride (Saline Flush) 10 ml IV Q8 [facility] Last Admin: 10/27/20 05:32 Dose: Not Given Documented by: Vancomycin HCl (Vancomycin Per Pharmacy) 1 order IV UD [facility]; Protocol A/P Narrative A/P Narrative: * Covid 19 pneumonia-clinically improving. Continue dexamethasone/empiric antibiotic coverage for superinfection * Gram-positive bacteremia. Likely source pneumonia. Continue surveillance cultures. On empiric vancomycin. De-escalate on sensitivities. Echocardiogram ordered today/michelle CT with contrast once creatinine improves * Sepsis with elevated lactate and endorgan dysfunction. clinically resolved. * Acute kidney injury secondary sepsis endorgan dysfunction. Creatinine down from 2.1-1.4. * Severe weakness secondary to COVID-19. Continue directed therapies * History of gout continue allopurinol * History of hyperlipidemia on statin * History of CAD on aspirin statin/propranolol glaucoma/brimonidine * History of COPD not on oxygen, on Symbicort/budesonide * DNR * Prophylaxis Heparin Plan * Continue antibiotic coverage * Continue dexamethasone * Sinus cultures/echocardiogram/michelle CT with contrast in 24 hours if persistent bacteremia or clinical worsening noted * Pre-existing medical condition management as above * PT OT nutrition support Time Spent With Patient Time: Total time spent is greater than 50% in coordination of care (as documented) at patient's floor/unit and/or counseling patient: QUALITY VTE Deep Vein Thrombosis/Pulmonary Embolism Present on Admission: No
[2020-10-27] MEDS ORDERED: LOPERAMIDE 2 MG CAPSULE PO ONE (15:25)
[2020-10-27] MEDS: LOPERAMIDE 2 MG CAPSULE PO PRN (18:14)
[2020-10-27] MEDS: SENNOSIDES/DOCUSATE SODIUM 1 TAB TABLET PO SCH (21:10)
[2020-10-28] MEDS: 0.9 % SODIUM CHLORIDE 10 ML SYRINGE IV SCH ×3 (06:03→21:38)
[2020-10-28 06:30] LABS: Basophils # (Auto) 0.02 K/mcL (0.00-0.20); Basophils % (Auto) 0.2 % (0.0-2.0); Eosinophils # (Auto) 0 K/mcL (0.00-0.70); Eosinophils % (Auto) 0 % (0.0-7.0); Hemoglobin 12.5 g/dL (13.5-16.5); Lymphocytes # (Auto) 1.18 K/mcL (1.50-4.80); Lymphocytes % (Auto) 12.2 % (15.0-49.0); Mean Cell Volume 92.2 fL (80.0-100.0); Mean Corpuscular HGB Conc 32.1 g/dL (31.0-36.0); Mean Platelet Volume 11.1 fL (7.4-10.4); Monocytes # (Auto) 0.63 K/mcL (0.10-0.90); Monocytes % (Auto) 6.5 % (1.0-12.0); Neutrophils % (Auto) 81.1 % (38.0-78.0); Platelet Count 152 K/mcL (140-440); RBC 4.23 M/mcL (4.50-5.90); Red Cell Distribution Width 13.2 % (11.5-14.5); WBC 9.7 K/mcL (4.5-11.0)
[2020-10-28 06:46] LABS: ALT/SGPT 21 U/L (<40); AST/SGOT 30 U/L (<40); Albumin 3.1 gm/dL (3.2-5.2); Albumin/Globulin Ratio 0.8 (1.0-2.3); Alkaline Phosphatase 56 U/L (39-117); Bilirubin,Direct < 0.2 mg/dL (<0.3); Bilirubin,Total 0.4 mg/dL (0.1-1.0); Blood Urea Nitrogen 39 mg/dL (8-23); Calcium 9.2 mg/dL (8.6-10.4); Carbon Dioxide 21 mmol/L (22-30); Chloride 105 mmol/L (96-108); Globulin 3.9 gm/dL (2.2-3.7); Glomerular Filtration Rate 50; Glucose 111 mg/dL (70-105); Lactate Dehydrogenase 298 U/L (135-225); Phosphorous 2.8 mg/dL (2.5-4.5); Triglycerides 172 mg/dL (<150)
[2020-10-28] MEDS: DOCUSATE SODIUM 100 MG CAPSULE PO SCH ×2 (07:35→21:22)
[2020-10-28] MEDS: DEXAMETHASONE 4 MG TABLET PO SCH (08:06)
[2020-10-28] MEDS: MULTIVIT,THER IRON,CA,FA & MIN 1 TABLET PO SCH (08:06)
[2020-10-28] MEDS: HEPARIN 5,000 UNIT/ML VIAL SQ SCH (08:07)
--- NOTE | 2020-10-28 08:46 | Internal Med Progress Note ---
SUBJECTIVE Subjective Patient information: Note initiated : 10/28/20 at 8:43 am Service Date, if different from initiated Date: [] Patient: Mars Faye a 85 y/o M admitted on 10/25/20 for fever, increased weakness falls. Chief Complaint: [] Interval history: History of present illness: Mr. Faye is a 85 year old M with a history of scleroderma/COPD/AAA who lives with his in [place]. Patient presents to the ER with worsening shortness of breath, fever over the last 24 hours. He has become profoundly weak limiting his ADLs. Initial work-up was consistent with bibasilar pneumonia on chest imaging,positive COVID-19 Zo. Patient was hypoxic requiring 2 L oxygen/elevated lactate at 3.8, acute kidney injury with creatinine 2.1. Patient was started on antibiotic coverage after cultures were drawn. Hospitalist service was consulted. Notably patient just received his second Covid immunization couple of days ago. At the time of evaluation patient is alert. He was able to answer most the questions. He is in moderate respiratory distress requiring 2 L oxygen. He endorses to history as above. Denies diarrhea, dysuria, headache, photophobia endorses myalgia, weakness, sweats chills and fever. He denies nausea 10/26-patient clinically improved. No overnight events. No concerns per staff. Now on room air. Tolerating diet. Feels a lot better. White count 4.7creatinine down from 2.1-1.9. 10/27-patient clinically improved however blood cultures positive for gram- positive cocci. Echocardiogram ordered. Creatinine downtrending at 1.[address] chest abdomen pelvis to rule out intra-abdominal/additional focus of source of bacteremia. Continue surveillance cultures/antibiotic coverage. De- escalate antibiotics based on sensitivities. White count 9.4 today. Occasional PVCs on traffic monitor specialist 10/28-patient doing well. White count 9.7. Denies fever chills. Feels close to baseline. On broad antibiotic coverage for gram-positive bacteremia. Echocardiogram results awaited. No other concerns expressed with nursing staff. Tolerating diet. Constitutional Vitals: Vital Signs Temp Pulse Resp BP Pulse Ox 98 F 73 19 136/74 94 10/28/20 08:00 10/28/20 08:00 10/28/20 08:00 10/28/20 08:00 10/28/20 08:00 Period Temp Pulse Resp BP Sys/Harper Pulse Ox Last 24 Hr 97.2 F-98.4 F 63-88 12- 112-147/64-96 92-97 Intake and Output 10/27/20 10/28/20 10/28/20 21:59 05:59 13:59 Intake Total 1720 240 50 Output Total 700 475 175 Balance 1020 -235 -125 Weight 81.284 kg Alert oriented Nonlabored breathing No joint swelling erythema No telemetry events Intake & Output: Intake & Output 10/27/20 10/28/20 10/28/20 21:59 05:59 13:59 Intake Total 1720 240 50 Output Total 700 475 175 Balance 1020 -235 -125 Weight 81.284 kg Intake: IV 1000 50 Sodium Chloride 0.9% 1,000 ml @ 1000 50 mls/hr IV .Q20H [facility] Rx#: [id number] Maxipime 1 gm In Dextrose 5% in 50 Water 50 ml @ 100 mls/hr IV Q12H [facility] Rx#:[id number] Oral 720 240 Output: Void Amount 475 175 Urine/Stool Mix 700 Other: Meal Dinner Percent of Meal Consumed 100% Feeding Ability Independent Urine Appearance Clear Clear Urine Color Bright Yellow Bright Yellow Urine Odor Strong Normal Stool Size Large Stool Color Brown Brown Stool Consistency Liquid Liquid OBJ DATA Labs CBC & Chem 7: 10/28/20 05:11 10/28/20 05:11 Labs: Abnormal Lab Results 10/28/20 10/28/20 10/27/20 05:11 05:11 05:25 RBC 4.23 L Hgb 12.5 L Hct 39.0 L Plt Count MPV 11.1 H Neut % (Auto) 81.1 H Lymph % (Auto) 12.2 L Lymph # (Auto) 1.18 L D-Dimer VBG Lactic Acid Carbon Dioxide 21 L 19 L BUN 39 H 47 H Creatinine 1.3 H 1.4 H Glucose 111 H 131 H Uric Acid Calcium Lactate Dehydrogenase 298 H 267 H Albumin 3.1 L Globulin 3.9 H 3.8 H Albumin/Globulin Ratio 0.8 L 0.8 L Triglycerides 172 H Procalcitonin 10/27/20 10/27/20 10/27/20 05:25 05:25 05:25 RBC 4.31 L Hgb 12.6 L Hct 39.9 L Plt Count 119 L MPV 11.6 H Neut % (Auto) 80.4 H Lymph % (Auto) 14.1 L Lymph # (Auto) 1.33 L D-Dimer 7.80 H VBG Lactic Acid Carbon Dioxide BUN Creatinine Glucose Uric Acid Calcium Lactate Dehydrogenase Albumin Globulin Albumin/Globulin Ratio Triglycerides Procalcitonin 0.29 H 10/26/20 10/26/20 10/26/20 05:10 05:10 05:10 RBC 4.09 L Hgb 11.9 L Hct 36.7 L Plt Count 101 L MPV 11.5 H Neut % (Auto) Lymph % (Auto) Lymph # (Auto) 0.95 L D-Dimer 9.93 H VBG Lactic Acid Carbon Dioxide 20 L BUN 48 H Creatinine 1.9 H Glucose 173 H Uric Acid 9.0 H Calcium 8.5 L Lactate Dehydrogenase 280 H Albumin 3.1 L Globulin Albumin/Globulin Ratio 0.8 L Triglycerides Procalcitonin 10/26/20 10/25/20 10/25/20 05:10 20:07 20:07 RBC Hgb Hct Plt Count MPV Neut % (Auto) Lymph % (Auto) Lymph # (Auto) D-Dimer VBG Lactic Acid 3.8 H Carbon Dioxide BUN 48 H Creatinine 2.1 H Glucose 114 H Uric Acid Calcium Lactate Dehydrogenase Albumin Globulin 4.3 H Albumin/Globulin Ratio 0.9 L Triglycerides Procalcitonin 0.32 H 10/25/20 20:07 RBC Hgb Hct Plt Count 128 L MPV 11.2 H Neut % (Auto) Lymph % (Auto) Lymph # (Auto) D-Dimer VBG Lactic Acid Carbon Dioxide BUN Creatinine Glucose Uric Acid Calcium Lactate Dehydrogenase Albumin Globulin Albumin/Globulin Ratio Triglycerides Procalcitonin Meds: Medications Acetaminophen (Tylenol) 650 mg PO Q4-6HP PRN; Protocol PRN Reason: Per Pain Protocol/Fever > 101 Bisacodyl (Dulcolax) 10 mg RI Q2-3DAYS PRN PRN Reason: Constipation Dexamethasone (Decadron) 6 mg PO DAILY [facility] Last Admin: 10/28/20 08:06 Dose: 6 mg Documented by: Docusate Sodium (Colace) 100 mg PO BID [facility] Last Admin: 10/28/20 07:35 Dose: Not Given Documented by: Heparin Sodium (Porcine) (Heparin) 5,000 unit SQ Q12 [facility] Last Admin: 10/28/20 08:07 Dose: 5,000 unit Documented by: Potassium Chloride 40 meq/ (Dextrose) 520 mls @ 130 mls/hr IV UD PRN PRN Reason: K+ = or < 3.5 Acetaminophen (Ofirmev) 650 mg in 65 mls @ 130 mls/hr IV Q6HP PRN; Protocol PRN Reason: Per Pain Protocol/Fever > 101 Magnesium Sulfate (Magnesium Sulfate) 2 gm in 50 mls @ 50 mls/hr IV UD PRN PRN Reason: MG = or < 1.7 Sodium Chloride (Sodium Chloride 0.9%) 1,000 mls @ 50 mls/hr IV .Q20H [facility] Stop: 10/28/20 10:51 Last Admin: 10/27/20 23:26 Dose: 50 mls/hr Documented by: Cefepime HCl 1 gm/ Dextrose 50 mls @ 100 mls/hr IV Q12H [facility]; Protocol Last Infusion: 10/28/20 07:35 Dose: Infused Documented by: Vancomycin HCl 1,500 mg/ (Sodium Chloride) 500 mls @ 333.3 mls/hr IV Q24H [facility] Last Infusion: 10/27/20 12:52 Dose: Infused Documented by: Iron Carb/Multivit/Manager [employer]/Folic Acid (Multivitamin W/Minerals) 1 tab PO DAILY [facility] Last Admin: 10/28/20 08:06 Dose: 1 tab Documented by: Loperamide HCl (Imodium) 2 mg PO PRN PRN PRN Reason: Diarrhea Last Admin: 10/27/20 18:14 Dose: 2 mg Documented by: Melatonin (Melatonin 3mg Tablet) 3 mg PO HSP PRN PRN Reason: Insomnia Ondansetron HCl (Zofran Odt) 4 mg SL Q4-6HP PRN; Protocol PRN Reason: Nausea And Vomiting Ondansetron HCl (Zofran) 4 mg IV Q4-6HP PRN; Protocol PRN Reason: Nausea And Vomiting Polyethylene Glycol (Miralax) 17 gm PO DAILYP PRN PRN Reason: Constipation Potassium Chloride (Klor-Con) 40 meq PO DAILYP PRN PRN Reason: K+ < 3.5 Potassium/Phosphorus/Sodium (Neutra Phos) 2 packet PO DAILY PRN PRN Reason: PHOS <2.5 Senna/Docusate Sodium (Senna Plus Tablet) 1 tab PO HS [facility] Last Admin: 10/27/20 21:10 Dose: Not Given Documented by: Sodium Chloride (Saline Flush) 10 ml IV Q8 [facility] Last Admin: 10/28/20 06:03 Dose: Not Given Documented by: Vancomycin HCl (Vancomycin Per Pharmacy) 1 order IV UD [facility]; Protocol A/P Narrative A/P Narrative: * Covid 19 pneumonia-clinically improving. On dexamethasone/empiric antibiotic coverage for GPC bacteremia * Gram-positive bacteremia. Likely source pneumonia. Await surveillance cultures/echocardiogram. On empiric vancomycin. * Sepsis with elevated lactate and endorgan dysfunction. clinically resolved. * Acute kidney injury secondary sepsis endorgan dysfunction. Creatinine down from 2.1-> 1.3. * Severe weakness secondary to COVID-19. Clinically improving with continued directed therapies * History of gout continue allopurinol * History of hyperlipidemia on statin * History of CAD on aspirin statin/propranolol glaucoma/brimonidine * History of COPD not on oxygen, on Symbicort/budesonide * DNR * Prophylaxis Heparin Plan * Continue antibiotic coverage * Continue dexamethasone for additional 24 hours * Await surveillance cultures/echocardiogram * Pre-existing medical condition management as above * PT OT nutrition support * Discharge planning once bacteremia resolves with outpatient antibiotics Time Spent With Patient Time: Total time spent is greater than 50% in coordination of care (as documented) at patient's floor/unit and/or counseling patient: QUALITY VTE Deep Vein Thrombosis/Pulmonary Embolism Present on Admission: No
[2020-10-28] MEDS: CEFEPIME 1 GM in DEXTROSE 5% IN WATER 50 ML IV SCH ×2 (09:23→21:36)
[2020-10-28] MEDS: VANCOMYCIN 1,500 MG in 0.9 % SODIUM CHLORIDE 500 ML IV SCH (09:23)
[2020-10-28] MEDS: LOPERAMIDE 2 MG CAPSULE PO PRN (11:22)
[2020-10-28] MEDS ORDERED: MAGNESIUM SULFATE 2 GM/50 ML BAG IV PRN (12:14)
[2020-10-28] MEDS ORDERED: POTASSIUM CHLORIDE 40 MEQ in DEXTROSE 5% IN WATER 500 ML IV PRN (12:14)
[2020-10-28] MEDS ORDERED: ACETAMINOPHEN 650 MG/65 ML BAG IV PRN (12:14)
[2020-10-28] MEDS ORDERED: NEUTRA PHOS 1 PACKET PO PRN (12:14)
[2020-10-28] MEDS ORDERED: POLYETHYLENE GLYCOL 3350 17 GM PACKET PO PRN (12:14)
[2020-10-28] MEDS ORDERED: VANCOMYCIN PER PHARMACY IV SCH (12:14)
[2020-10-28] MEDS ORDERED: ONDANSETRON 4 MG ODT TABLET SL PRN (12:14)
[2020-10-28] MEDS ORDERED: ACETAMINOPHEN 325 MG TABLET PO PRN (12:14)
[2020-10-28] MEDS ORDERED: BISACODYL 10 MG SUPP.RECT PR PRN (12:14)
[2020-10-28] MEDS ORDERED: MELATONIN 3 MG TABLET PO PRN (12:14)
[2020-10-28] MEDS ORDERED: LOPERAMIDE 2 MG CAPSULE PO PRN (12:14)
[2020-10-28] MEDS ORDERED: ONDANSETRON 4 MG/2 ML VIAL IV PRN (12:14)
[2020-10-28] MEDS ORDERED: POTASSIUM CHLORIDE 20 MEQ PACKET PO PRN (12:14)
--- NOTE | 2020-10-28 13:47 | Internal Med Progress Note ---
SUBJECTIVE Subjective Patient information: Note initiated : 10/28/20 at 1:38 pm Service Date, if different from initiated Date: [] Patient: Mars Faye a 85 y/o M admitted on 10/25/20 for fever, increased weakness falls. Chief Complaint: [] Interval history: History of present illness: Mr. Faye is a 85 year old M with a history of scleroderma/COPD/AAA who lives with his in [place]. Patient presents to the ER with worsening shortness of breath, fever over the last 24 hours. He has become profoundly weak limiting his ADLs. Initial work-up was consistent with bibasilar pneumonia on chest imaging,positive COVID-19 Zo. Patient was hypoxic requiring 2 L oxygen/elevated lactate at 3.8, acute kidney injury with creatinine 2.1. Patient was started on antibiotic coverage after cultures were drawn. Hospitalist service was consulted. Notably patient just received his second Covid immunization couple of days ago. At the time of evaluation patient is alert. He was able to answer most the questions. He is in moderate respiratory distress requiring 2 L oxygen. He endorses to history as above. Denies diarrhea, dysuria, headache, photophobia endorses myalgia, weakness, sweats chills and fever. He denies nausea 10/26-patient clinically improved. No overnight events. No concerns per staff. Now on room air. Tolerating diet. Feels a lot better. White count 4.7creatinine down from 2.1-1.9. 10/27-patient clinically improved however blood cultures positive for gram- positive cocci. Echocardiogram ordered. Creatinine downtrending at 1.[address] chest abdomen pelvis to rule out intra-abdominal/additional focus of source of bacteremia. Continue surveillance cultures/antibiotic coverage. De- escalate antibiotics based on sensitivities. White count 9.4 today. Occasional PVCs on secured entrance monitor 10/28-patient doing well. White count 9.7. Denies fever chills. Feels close to baseline. On broad antibiotic coverage for gram-positive bacteremia. Echocardiogram results awaited. No other concerns expressed with nursing staff. Tolerating diet. Constitutional Vitals: Vital Signs Temp Pulse Resp BP Pulse Ox 98.3 F 92 H 16 118/85 97 10/28/20 12:01 10/28/20 12:10/28/20 12:01 10/28/20 12:01 10/28/20 12:01 Period Temp Pulse Resp BP Sys/Harper Pulse Ox Last 24 Hr 97.2 F-98.4 F 63-92 12- 112-147/72-96 92-97 Intake and Output 10/27/20 10/28/20 10/28/20 21:59 05:59 13:59 Intake Total 1720 240 50 Output Total 700 475 175 Balance 1020 -235 -125 Weight 81.284 kg Intake & Output: Intake & Output 10/27/20 10/28/20 10/28/20 21:59 05:59 13:59 Intake Total 1720 240 50 Output Total 700 475 175 Balance 1020 -235 -125 Weight 81.284 kg Intake: IV 1000 50 Sodium Chloride 0.9% 1,000 ml @ 1000 50 mls/hr IV .Q20H [facility] Rx#: [id number] Maxipime 1 gm In Dextrose 5% in 50 Water 50 ml @ 100 mls/hr IV Q12H [facility] Rx#:[id number] Oral 720 240 Output: Void Amount 475 175 Urine/Stool Mix 700 Other: Meal Dinner Percent of Meal Consumed 100% Feeding Ability Independent Urine Appearance Clear Clear Urine Color Bright Yellow Bright Yellow Urine Odor Strong Normal Stool Size Large Stool Color Brown Brown Stool Consistency Liquid Liquid Exam: General: Alert, Awake, No acute Distress Eyes/N/T: EOMI, Head/Neck: neck supple, CV: RRR, No murmurs, Pulm: b/l, no wheezing Abd: soft, nontender, +BS x4 Ext: no clubbing/cyanosis/edema Neuro: Alert, no focal deficits, moves all extremities, Skin: warm/dry OBJ DATA Labs CBC & Chem 7: 10/28/20 05:11 10/28/20 05:11 Labs: Abnormal Lab Results 10/28/20 10/28/20 10/27/20 05:11 05:11 05:25 RBC 4.23 L Hgb 12.5 L Hct 39.0 L Plt Count MPV 11.1 H Neut % (Auto) 81.1 H Lymph % (Auto) 12.2 L Lymph # (Auto) 1.18 L D-Dimer VBG Lactic Acid Carbon Dioxide 21 L 19 L BUN 39 H 47 H Creatinine 1.3 H 1.4 H Glucose 111 H 131 H Uric Acid Calcium Lactate Dehydrogenase 298 H 267 H Albumin 3.1 L Globulin 3.9 H 3.8 H Albumin/Globulin Ratio 0.8 L 0.8 L Triglycerides 172 H Procalcitonin 10/27/20 10/27/20 10/27/20 05:25 05:25 05:25 RBC 4.31 L Hgb 12.6 L Hct 39.9 L Plt Count 119 L MPV 11.6 H Neut % (Auto) 80.4 H Lymph % (Auto) 14.1 L Lymph # (Auto) 1.33 L D-Dimer 7.80 H VBG Lactic Acid Carbon Dioxide BUN Creatinine Glucose Uric Acid Calcium Lactate Dehydrogenase Albumin Globulin Albumin/Globulin Ratio Triglycerides Procalcitonin 0.29 H 10/26/20 10/26/20 10/26/20 05:10 05:10 05:10 RBC 4.09 L Hgb 11.9 L Hct 36.7 L Plt Count 101 L MPV 11.5 H Neut % (Auto) Lymph % (Auto) Lymph # (Auto) 0.95 L D-Dimer 9.93 H VBG Lactic Acid Carbon Dioxide 20 L BUN 48 H Creatinine 1.9 H Glucose 173 H Uric Acid 9.0 H Calcium 8.5 L Lactate Dehydrogenase 280 H Albumin 3.1 L Globulin Albumin/Globulin Ratio 0.8 L Triglycerides Procalcitonin 10/26/20 10/25/20 10/25/20 05:10 20:07 20:07 RBC Hgb Hct Plt Count MPV Neut % (Auto) Lymph % (Auto) Lymph # (Auto) D-Dimer VBG Lactic Acid 3.8 H Carbon Dioxide BUN 48 H Creatinine 2.1 H Glucose 114 H Uric Acid Calcium Lactate Dehydrogenase Albumin Globulin 4.3 H Albumin/Globulin Ratio 0.9 L Triglycerides Procalcitonin 0.32 H 10/25/20 20:07 RBC Hgb Hct Plt Count 128 L MPV 11.2 H Neut % (Auto) Lymph % (Auto) Lymph # (Auto) D-Dimer VBG Lactic Acid Carbon Dioxide BUN Creatinine Glucose Uric Acid Calcium Lactate Dehydrogenase Albumin Globulin Albumin/Globulin Ratio Triglycerides Procalcitonin Meds: Medications Acetaminophen (Tylenol) 650 mg PO Q4-6HP PRN; Protocol PRN Reason: Per Pain Protocol/Fever > 101 Aspirin (Aspirin) 81 mg PO QDAY [facility] Atorvastatin Calcium (Lipitor) 10 mg PO QHS [facility] Bisacodyl (Dulcolax) 10 mg [place] Q2-3DAYS PRN PRN Reason: Constipation Brimonidine Tartrate (Alphagan P Ophth Drops) 1 gtt OD BID [facility] Cefepime HCl (Maxipime) 1 gm IV Q12H [facility] Dexamethasone (Decadron) 6 mg PO DAILY [facility] Docusate Sodium (Colace) 100 mg PO BID [facility] Heparin Sodium (Porcine) (Heparin) 5,000 unit SQ Q12 [facility] Acetaminophen (Ofirmev) 650 mg in 65 mls @ 130 mls/hr IV Q6HP PRN; Protocol PRN Reason: Per Pain Protocol/Fever > 101 Cefepime HCl 1 gm/ Dextrose 50 mls @ 100 mls/hr IV Q12H [facility]; Protocol Stop: 10/29/20 10:00 Magnesium Sulfate (Magnesium Sulfate) 2 gm in 50 mls @ 50 mls/hr IV UD PRN PRN Reason: MG = or < 1.7 Vancomycin HCl 1,500 mg/ (Sodium Chloride) 500 mls @ 333.3 mls/hr IV Q24H [facility] Potassium Chloride 40 meq/ (Dextrose) 520 mls @ 130 mls/hr IV UD PRN PRN Reason: K+ = or < 3.5 Iron Carb/Multivit/Brent/Folic Acid (Multivitamin W/Minerals) 1 tab PO DAILY [facility] Loperamide HCl (Imodium) 2 mg PO PRN PRN PRN Reason: Diarrhea Magnesium Oxide (Magnesium Oxide) 400 mg PO DAILY [facility] Melatonin (Melatonin 3mg Tablet) 3 mg PO HSP PRN PRN Reason: Insomnia Metoprolol Tartrate (Lopressor) 12.5 mg PO BID [facility] Ondansetron HCl (Zofran Odt) 4 mg SL Q4-6HP PRN; Protocol PRN Reason: Nausea And Vomiting Ondansetron HCl (Zofran) 4 mg IV Q4-6HP PRN; Protocol PRN Reason: Nausea And Vomiting Alfuzosin 10 Mg Tab 1 dose PO QHS [facility] Polyethylene Glycol (Miralax) 17 gm PO DAILYP PRN PRN Reason: Constipation Potassium Chloride (Klor-Con) 40 meq PO DAILYP PRN PRN Reason: K+ < 3.5 Potassium/Phosphorus/Sodium (Neutra Phos) 2 packet PO DAILY PRN PRN Reason: PHOS <2.5 Prednisolone Acetate (Pred Forte Ophth Drops) 1 gtt OU DAILY [facility] Senna/Docusate Sodium (Senna Plus Tablet) 1 tab PO HS [facility] Sodium Chloride (Saline Flush) 10 ml IV Q8 [facility] Last Admin: 10/28/20 13:15 Dose: 10 ml Documented by: Timolol Maleate (Timoptic 0.5% Ophth Drops) 1 gtt OD BID [facility] Vancomycin HCl (Vancomycin Per Pharmacy) 1 order IV UD [facility]; Protocol A/P Narrative A/P Narrative: A: *Covid-19 PNA: improving *?Bacteremia (GPC): Likely source pneumonia. *Sepsis w/elevated lactate and endorgan dysfunction: clinically resolved *KEO on CKD III: *Severe weakness: 2/2 COVID-19, *h/o CAD: on aspirin statin/propranolol *h/o COPD (not on oxygen): on Symbicort/budesonide Plan: -Continue dexamethasone for additional 24 hours -[facility] -Await surveillance cultures/echocardiogram -PT OT nutrition support -Discharge planning once bacteremia resolves with outpatient antibiotics -f/u RUL incidental lung nodule outpt CT -ppx: lovenox DNR Time Spent With Patient Time: Total time spent is greater than 50% in coordination of care (as documented) at patient's floor/unit and/or counseling patient: QUALITY VTE Deep Vein Thrombosis/Pulmonary Embolism Present on Admission: No
[2020-10-28] MEDS ORDERED: ATORVASTATIN 10 MG TABLET PO SCH (21:00)
[2020-10-28] MEDS ORDERED: SENNOSIDES/DOCUSATE SODIUM 1 TAB TABLET PO SCH (21:00)
[2020-10-28] MEDS ORDERED: HEPARIN 5,000 UNIT/ML VIAL SQ SCH (21:00)
[2020-10-28] MEDS: BRIMONIDINE OPHTH DROPS 1 GTT BOTTLE 5ML OD SCH (21:21)
[2020-10-28] MEDS: TIMOLOL 0.5% OPHTH DROPS BOTTLE 5ML OD SCH (21:22)
[2020-10-28] MEDS ORDERED: CEFEPIME 1 GM VIAL ONE (21:32)
[2020-10-28] MEDS: METOPROLOL TARTRATE 25 MG TABLET PO SCH (21:35)
[2020-10-29] MEDS: 0.9 % SODIUM CHLORIDE 10 ML SYRINGE IV SCH (06:03)
[2020-10-29 07:00] LABS: ALT/SGPT 20 U/L (<40); AST/SGOT 25 U/L (<40); Albumin 3.1 gm/dL (3.2-5.2); Albumin/Globulin Ratio 0.9 (1.0-2.3); Alkaline Phosphatase 57 U/L (39-117); Bilirubin,Direct < 0.2 mg/dL (<0.3); Bilirubin,Total 0.4 mg/dL (0.1-1.0); Blood Urea Nitrogen 31 mg/dL (8-23); Carbon Dioxide 23 mmol/L (22-30); Chloride 105 mmol/L (96-108); Globulin 3.5 gm/dL (2.2-3.7); Glomerular Filtration Rate 62; Glucose 106 mg/dL (70-105); Lactate Dehydrogenase 270 U/L (135-225); Phosphorous 2.8 mg/dL (2.5-4.5); Triglycerides 150 mg/dL (<150); Uric Acid 6.9 mg/dL (2.5-8.0)
--- NOTE | 2020-10-29 07:14 | Internal Med Progress Note ---
SUBJECTIVE Subjective Patient information: Note initiated : 10/29/20 at 7:12 am Service Date, if different from initiated Date: [] Patient: Mars Faye a 85 y/o M admitted on 10/25/20 for fever, increased weakness falls. Chief Complaint: [] Interval history: History of present illness: Mr. Faye is a 85 year old M with a history of scleroderma/COPD/AAA who lives with his in [place]. Patient presents to the ER with worsening shortness of breath, fever over the last 24 hours. He has become profoundly weak limiting his ADLs. Initial work-up was consistent with bibasilar pneumonia on chest imaging,positive COVID-19 Zo. Patient was hypoxic requiring 2 L oxygen/elevated lactate at 3.8, acute kidney injury with creatinine 2.1. Patient was started on antibiotic coverage after cultures were drawn. Hospitalist service was consulted. Notably patient just received his second Covid immunization couple of days ago. At the time of evaluation patient is alert. He was able to answer most the questions. He is in moderate respiratory distress requiring 2 L oxygen. He endorses to history as above. Denies diarrhea, dysuria, headache, photophobia endorses myalgia, weakness, sweats chills and fever. He denies nausea 10/26-patient clinically improved. No overnight events. No concerns per staff. Now on room air. Tolerating diet. Feels a lot better. White count 4.7creatinine down from 2.1-1.9. 10/27-patient clinically improved however blood cultures positive for gram- positive cocci. Echocardiogram ordered. Creatinine downtrending at 1.[address] chest abdomen pelvis to rule out intra-abdominal/additional focus of source of bacteremia. Continue surveillance cultures/antibiotic coverage. De- escalate antibiotics based on sensitivities. White count 9.4 today. 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 White count 9.7. Denies fever chills. Feels close to baseline. On broad antibiotic coverage for gram-positive bacteremia. Echocardiogram results awaited. No other concerns expressed with nursing staff. Tolerating diet. 10/29 Patient doing well and feeling better. On room air. No new complaints. Review of Systems: denies headache/fever/chills/nausea/vomiting/chest or abdominal pain/diarrhea. Otherwise see above. Constitutional Vitals: Vital Signs Temp Pulse Resp BP Pulse Ox 98.8 F 65 16 138/78 96 10/29/20 06:05 10/29/20 06:05 10/29/20 06:05 10/29/20 06:05 10/29/20 06:05 Period Temp Pulse Resp BP Sys/Harper Pulse Ox Last 24 Hr 96.5 F-98.8 F 60-92 14-19 118-159/72-95 90-97 Intake and Output 10/28/20 10/29/20 10/29/20 21:59 05:59 13:59 Intake Total 1320 240 Output Total 325 0 Balance 1320 -85 0 Weight 81.675 kg Intake & Output: Intake & Output 10/28/20 10/29/20 10/29/20 21:59 05:59 13:59 Intake Total 1320 240 Output Total 325 0 Balance 1320 -85 0 Weight 81.675 kg Intake: IV 1000 Sodium Chloride 0.9% 1,000 ml @ 1000 50 mls/hr IV .Q20H [facility] Rx#: [id number] Oral 320 240 Output: Void Amount 325 0 Other: Urine Appearance Clear Clear Uretheral (Jj) Clear Urine Color Bright Yellow Bright Yellow Uretheral (Jj) Dark Yellow Urine Odor Normal Uretheral (Jj) Normal Stool Size Large Stool Color Brown Stool Consistency Liquid Exam: General: Alert, Awake, No acute Distress Eyes/N/T: EOMI, Head/Neck: neck supple, CV: RRR, No murmurs, Pulm:mild fine rales b/l, no wheezing Abd: soft, nontender, +BS x4 Ext: no clubbing/cyanosis/edema Neuro: Alert, no focal deficits, moves all extremities, Skin: warm/dry OBJ DATA Labs CBC & Chem 7: 10/28/20 05:11 10/29/20 05:36 Labs: Abnormal Lab Results 10/29/20 10/28/20 10/28/20 05:36 05:11 05:11 RBC 4.23 L Hgb 12.5 L Hct 39.0 L Plt Count MPV 11.1 H Neut % (Auto) 81.1 H Lymph % (Auto) 12.2 L Lymph # (Auto) 1.18 L D-Dimer Carbon Dioxide 21 L BUN 31 H 39 H Creatinine 1.3 H Glucose 106 H 111 H Lactate Dehydrogenase 270 H 298 H Albumin 3.1 L 3.1 L Globulin 3.9 H Albumin/Globulin Ratio 0.9 L 0.8 L Triglycerides 150 H 172 H Procalcitonin 10/27/20 10/27/20 10/27/20 05:25 05:25 05:25 RBC 4.31 L Hgb 12.6 L Hct 39.9 L Plt Count 119 L MPV 11.6 H Neut % (Auto) 80.4 H Lymph % (Auto) 14.1 L Lymph # (Auto) 1.33 L D-Dimer 7.80 H Carbon Dioxide 19 L BUN 47 H Creatinine 1.4 H Glucose 131 H Lactate Dehydrogenase 267 H Albumin Globulin 3.8 H Albumin/Globulin Ratio 0.8 L Triglycerides Procalcitonin 10/27/20 10/26/20 10/26/20 05:25 05:10 05:10 RBC Hgb Hct Plt Count MPV Neut % (Auto) Lymph % (Auto) Lymph # (Auto) D-Dimer 9.93 H Carbon Dioxide BUN Creatinine Glucose Lactate Dehydrogenase Albumin Globulin Albumin/Globulin Ratio Triglycerides Procalcitonin 0.29 H 0.32 H Meds: Medications Acetaminophen (Tylenol) 650 mg PO Q4-6HP PRN; Protocol PRN Reason: Per Pain Protocol/Fever > 101 Aspirin (Aspirin) 81 mg PO QDAY [facility] Atorvastatin Calcium (Lipitor) 10 mg PO QHS [facility] Last Admin: 10/28/20 21:35 Dose: 10 mg Documented by: Bisacodyl (Dulcolax) 10 mg MO Q2-3DAYS PRN PRN Reason: Constipation Brimonidine Tartrate (Alphagan P Ophth Drops) 1 gtt OD BID [facility] Last Admin: 10/28/20 21:21 Dose: Not Given Documented by: Cefepime HCl (Maxipime) 1 gm IV Q12H [facility] Dexamethasone (Decadron) 6 mg PO DAILY [facility] Docusate Sodium (Colace) 100 mg PO BID [facility] Last Admin: 10/28/20 21:22 Dose: Not Given Documented by: Enoxaparin Sodium (Lovenox) 40 mg SQ DAILY [facility] Acetaminophen (Ofirmev) 650 mg in 65 mls @ 130 mls/hr IV Q6HP PRN; Protocol PRN Reason: Per Pain Protocol/Fever > 101 Cefepime HCl 1 gm/ Dextrose 50 mls @ 100 mls/hr IV Q12H [facility]; Protocol Stop: 10/29/20 10:00 Last Admin: 10/28/20 21:36 Dose: 100 mls/hr Documented by: Magnesium Sulfate (Magnesium Sulfate) 2 gm in 50 mls @ 50 mls/hr IV UD PRN PRN Reason: MG = or < 1.7 Vancomycin HCl 1,500 mg/ (Sodium Chloride) 500 mls @ 333.3 mls/hr IV Q24H [facility] Potassium Chloride 40 meq/ (Dextrose) 520 mls @ 130 mls/hr IV UD PRN PRN Reason: K+ = or < 3.5 Iron Carb/Multivit/[place]/Folic Acid (Multivitamin W/Minerals) 1 tab PO DAILY [facility] Loperamide HCl (Imodium) 2 mg PO PRN PRN PRN Reason: Diarrhea Magnesium Oxide (Magnesium Oxide) 400 mg PO DAILY [facility] Melatonin (Melatonin 3mg Tablet) 3 mg PO HSP PRN PRN Reason: Insomnia Metoprolol Tartrate (Lopressor) 12.5 mg PO BID [facility] Last Admin: 10/28/20 21:35 Dose: 12.5 mg Documented by: Ondansetron HCl (Zofran Odt) 4 mg SL Q4-6HP PRN; Protocol PRN Reason: Nausea And Vomiting Ondansetron HCl (Zofran) 4 mg IV Q4-6HP PRN; Protocol PRN Reason: Nausea And Vomiting Alfuzosin 10 Mg Tab 1 dose PO QHS [facility] Last Admin: 10/28/20 21:22 Dose: Not Given Documented by: Polyethylene Glycol (Miralax) 17 gm PO DAILYP PRN PRN Reason: Constipation Potassium Chloride (Klor-Con) 40 meq PO DAILYP PRN PRN Reason: K+ < 3.5 Potassium/Phosphorus/Sodium (Neutra Phos) 2 packet PO DAILY PRN PRN Reason: PHOS <2.5 Prednisolone Acetate (Pred Forte Ophth Drops) 1 gtt OU DAILY [facility] Senna/Docusate Sodium (Senna Plus Tablet) 1 tab PO HS [facility] Last Admin: 10/28/20 21:22 Dose: Not Given Documented by: Sodium Chloride (Saline Flush) 10 ml IV Q8 [facility] Last Admin: 10/29/20 06:03 Dose: 10 ml Documented by: Timolol Maleate (Timoptic 0.5% Ophth Drops) 1 gtt OD BID [facility] Last Admin: 10/28/20 21:22 Dose: Not Given Documented by: Vancomycin HCl (Vancomycin Per Pharmacy) 1 order IV UD [facility]; Protocol A/P Narrative A/P Narrative: A: *Covid-19 PNA: improving -on room air *?Bacteremia (GPC): Likely source pneumonia *Sepsis w/elevated lactate and endorgan dysfunction: clinically resolved *KEO on CKD III: -resolved *Severe weakness: 2/2 COVID-19, *h/o CAD: on aspirin statin/propranolol *h/o COPD (not on oxygen): on Symbicort/budesonide Plan: -on dexamethasone -cefepime/Vanco for GPC bacteremia pending fincal BC -Await surveillance cultures/echocardiogram -PT OT nutrition support -Discharge planning once bacteremia resolves with outpatient antibiotics -f/u RUL incidental lung nodule outpt CT -ppx: lovenox DNR Time Spent With Patient Time: Total time spent is greater than 50% in coordination of care (as documented) at patient's floor/unit and/or counseling patient: [facility]AL[facility] VTE Deep Vein Thrombosis/Pulmonary Embolism Present on Admission: No
[2020-10-29] MEDS: DOCUSATE SODIUM 100 MG CAPSULE PO SCH (08:39)
[2020-10-29] MEDS: METOPROLOL TARTRATE 25 MG TABLET PO SCH (08:39)
[2020-10-29] MEDS: TIMOLOL 0.5% OPHTH DROPS BOTTLE 5ML OD SCH (08:42)
[2020-10-29] MEDS: BRIMONIDINE OPHTH DROPS 1 GTT BOTTLE 5ML OD SCH (08:45)
[2020-10-29] MEDS ORDERED: VANCOMYCIN 1,500 MG in 0.9 % SODIUM CHLORIDE 500 ML IV SCH (09:00)
[2020-10-29] MEDS ORDERED: DEXAMETHASONE 4 MG TABLET PO SCH (09:00)
[2020-10-29] MEDS ORDERED: MAGNESIUM OXIDE 400 MG TABLET PO SCH (09:00)
[2020-10-29] MEDS ORDERED: ASPIRIN 81 MG TAB.CHEW PO SCH (09:00)
[2020-10-29] MEDS ORDERED: ENOXAPARIN 40 MG/0.4 ML SYRINGE SQ SCH (09:00)
[2020-10-29] MEDS ORDERED: MULTIVIT,THER IRON,CA,FA & MIN 1 TABLET PO SCH (09:00)
[2020-10-29] MEDS ORDERED: prednisoLONE 1% OPHTH DROPS 1ML BOTTLE OU SCH (09:00)
[2020-10-29] MEDS: CEFEPIME 1 GM in DEXTROSE 5% IN WATER 50 ML IV SCH (09:24)
--- NOTE | 2020-10-29 10:13 | Discharge Summary ---
Discharge Provider Provider Patient information: Note initiated : 10/29/20 at 10:12 am Service Date, if different from initiated Date: [] Patient: Mars Faye 85 y/o M admitted on 10/25/20 for fever, increased weakness falls. Chief Complaint: [] Date of admission: 10/25/20 22:36 Discharge date: 10/29/20 Primary care physician: Viktoriya Fraire Consults: 10/25/20 Consult to Physician [CONS] Stat Comment: Consulting Provider: Nikhil Figueroa Reason For Exam: Physician to Consult Discharge Meds Discharge Medications Home Medications acetaminophen 500 - 1,000 mg PO PRN PRN 10/26/20 [History Confirmed 10/26/20 Last Taken Unknown] alfuzosin 10 mg PO QHS 10/26/20 [History Confirmed 10/26/20 Last Taken Unknown] aspirin 81 mg PO QDAY 10/26/20 [History Confirmed 10/26/20 Last Taken Unknown] atorvastatin 10 mg PO QHS 10/26/20 [History Confirmed 10/26/20 Last Taken Unknown] brimonidine 1 % OPHTHALMIC (EYE) BID 10/26/20 [History Confirmed 10/26/20 Last Taken Unknown] hydrochlorothiazide 25 mg PO QDAY 10/26/20 [History Confirmed 10/26/20 Last Taken Unknown] loratadine [Allergy Relief (loratadine)] 10 mg PO QDAY 10/26/20 [History Confirmed 10/26/20 Last Taken Unknown] magnesium oxide 420 mg PO QDAY 10/26/20 [History Confirmed 10/26/20 Last Taken Unknown] meclizine 25 mg PO QDAY 10/26/20 [History Confirmed 10/26/20 Last Taken Unknown] metoprolol tartrate 12.5 mg PO BID 10/26/20 [History Confirmed 10/26/20 Last Taken Unknown] prednisolone acetate 1 drp OPHTHALMIC (EYE) DAILY 10/26/20 [History Confirmed 10/26/20 Last Taken Unknown] timolol maleate 1 % OPHTHALMIC (EYE) BID 10/26/20 [History Confirmed 10/26/20 Last Taken Unknown] levofloxacin 750 mg PO Q24H #2 tab 10/29/20 [Rx Last Taken Unknown] COURSE Hospital Course Hospital course: History of present illness: Mr. Faye is a 85 year old M with a history of scleroderma/COPD/AAA who lives with his in [place]. Patient presents to the ER with worsening shortness of breath, fever over the last 24 hours. He has become profoundly weak limiting his ADLs. Initial work-up was consistent with bibasilar pneumonia on chest imaging,positive COVID-19 Zo. Patient was hypoxic requiring 2 L oxygen/elevated lactate at 3.8, acute kidney injury with creatinine 2.1. Patient was started on antibiotic coverage after cultures were drawn. Hospitalist service was consulted. Notably patient just received his second Covid immunization couple of days ago. At the time of evaluation patient is alert. He was able to answer most the questions. He is in moderate respiratory distress requiring 2 L oxygen. He endorses to history as above. Denies diarrhea, dysuria, headache, photophobia endorses myalgia, weakness, sweats chills and fever. He denies nausea 10/26-patient clinically improved. No overnight events. No concerns per staff. Now on room air. Tolerating diet. Feels a lot better. White count 4.7creatinine down from 2.1-1.9. 10/27-patient clinically improved however blood cultures positive for gram- positive cocci. Echocardiogram ordered. Creatinine downtrending at 1.[address] chest abdomen pelvis to rule out intra-abdominal/additional focus of source of bacteremia. Continue surveillance cultures/antibiotic coverage. De- escalate antibiotics based on sensitivities. White count 9.4 today. 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 White count 9.7. Denies fever chills. Feels close to baseline. On broad antibiotic coverage for gram-positive bacteremia. Echocardiogram results awaited. No other concerns expressed with nursing staff. Tolerating diet. 10/29 Patient doing well and feeling better. On room air. No new complaints. Blood culture growing coag negative staph from 1 blood draw, this is determined to be a contaminant. Stable for discharge. A: *Covid-19 PNA: improving -on room air *Sepsis w/elevated lactate and endorgan dysfunction: clinically resolved *KEO on CKD III: *Severe weakness: 10/16 COVID-19, *h/o CAD: on aspirin statin/propranolol *h/o COPD (not on oxygen): on Symbicort/budesonide Discharge diagnosis: Covid pneumonia sepsis acute kidney injury weakness Secondary discharge diagnosis: CAD COPD Time Spent with Patient Time attestation: Total time spent providing and/or coordinating discharge services: Time spent: Greater than 30 minutes EXAM Constitutional Vitals: Temp Pulse Resp BP Pulse Ox 97.8 F 57 L 20 145/79 95 10/29/20 07:22 10/29/20 07:22 10/29/20 07:22 10/29/20 07:22 10/29/20 07:22 Discharge Data Data Completed and Pending Labs on day of discharge: Labs from last 24 hours 10/29/20 10/29/20 07:57 05:36 Sodium 136 Potassium 4.7 Chloride 105 Carbon Dioxide 23 Anion Gap 8.0 BUN 31 H Creatinine 1.1 GFR Calculation 62 Glucose 106 H Uric Acid 6.9 Calcium 9.0 Phosphorus 2.8 Magnesium 2.0 Total Bilirubin 0.4 Direct Bilirubin < 0.2 GGT 20 AST 25 ALT 20 Alkaline Phosphatase 57 Lactate Dehydrogenase 270 H Total Protein 6.6 Albumin 3.1 L Globulin 3.5 Albumin/Globulin Ratio 0.9 L Triglycerides 150 H Vancomycin Trough 14.4 Preliminary micro results at discharge 10/27/20 06:52 Blood Culture - Preliminary Blood 10/27/20 06:42 Blood Culture - Preliminary Blood 10/25/20 21:29 Blood Culture - Preliminary Blood 10/25/20 21:26 Blood Culture - Preliminary Blood Discharge Plan Patient/Caregiver Discharge Instructions Activity: increase activity as tolerated Diet: Cardiac Prescriptions: New levofloxacin 750 mg tablet 750 mg PO Q24H Qty: 2 RF: 0 Continued magnesium oxide 420 mg Tablet 420 mg PO QDAY RF: 0 prednisolone acetate 1 % drops,suspension 1 drp OPHTHALMIC (EYE) DAILY RF: 0 timolol maleate 0.5 % drops 1 % OPHTHALMIC (EYE) BID RF: 0 brimonidine 0.15 % drops 1 % OPHTHALMIC (EYE) BID RF: 0 alfuzosin 10 mg Tablet Extended Release 24 Hr 10 mg PO QHS RF: 0 acetaminophen 500 mg Tablet 500 - 1,000 mg PO PRN PRN (Reason: Pain) RF: 0 loratadine [Allergy Relief (loratadine)] 10 mg Tablet 10 mg PO QDAY RF: 0 metoprolol tartrate 25 mg Tablet 12.5 mg PO BID RF: 0 atorvastatin 10 mg Tablet 10 mg PO QHS RF: 0 meclizine 25 mg Tablet 25 mg PO QDAY RF: 0 aspirin 81 mg Tablet,Chewable 81 mg PO QDAY RF: 0 hydrochlorothiazide 25 mg Tablet 25 mg PO QDAY RF: 0 Follow Up Plan Follow up with: Viktoriya Fraire ARNP [Primary Care Provider] - Patient Disposition: Home Health Service Prognosis: Fair Overall status at discharge: patient is progressing back to baseline Discharge Orders: Discharge Order (Routine); Ordered 10/29/20 [facility]/Pulmonary Embolism Present on Admission: No
[2020-10-29] MEDS ORDERED: CEFEPIME 1 GM VIAL IV SCH ×3 (21:00)
== END 2020-10-29 14:00 | disposition home health service (06) | DRG 871 ==
LOC: ED 19:39 → ICU 22:36 → MEDSUR 10-28 14:05
PROVIDERS: ADMIT Internal Medicine; ATTEND Internal Medicine

== ENCOUNTER 2024-06-26 09:51 | Inpatient (IN) ==
[2024-06-26 11:21] LABS: Basophils # (Auto) 0.04 K/mcL (0.00-0.30); Basophils % (Auto) 0.7 % (0.0-2.0); Eosinophils # (Auto) 0.21 K/mcL (0.00-0.70); Eosinophils % (Auto) 3.5 % (0.0-7.0); Hemoglobin 10.3 g/dL (13.7-17.5); Lymphocytes # (Auto) 1.71 K/mcL (1.50-4.80); Lymphocytes % (Auto) 28.4 % (15.5-49.0); Mean Cell Volume 93.8 fL (80.0-100.0); Mean Corpuscular HGB Conc 31.2 g/dL (31.0-36.0); Mean Platelet Volume 10.2 fL (8.8-12.5); Monocytes # (Auto) 0.43 K/mcL (0.10-0.90); Monocytes % (Auto) 7.1 % (1.0-12.0); Neutrophils % (Auto) 60.1 % (38.0-78.0); Platelet Count 174 K/mcL (140-440); RBC 3.52 M/mcL (4.63-6.08); Red Cell Distribution Width 13.8 % (11.5-14.5)
[2024-06-26 11:40] LABS: Thyroid Stimulating Hormone 1.75 uIU/mL (0.27-5.01)
[2024-06-26 11:46] LABS: ALT/SGPT 16 U/L (<40); AST/SGOT 22 U/L (<40); Albumin/Globulin Ratio 1.1 (1.0-2.3); Alkaline Phosphatase 112 U/L (39-117); Bilirubin,Total 0.3 mg/dL (0.1-1.0); Blood Urea Nitrogen 26 mg/dL (8-23); Calcium 9.3 mg/dL (8.6-10.4); Carbon Dioxide 23 mmol/L (22-30); Chloride 103 mmol/L (96-108); Globulin 3.5 gm/dL (2.2-3.7); Glomerular Filtration Rate 28; Glucose 136 mg/dL (70-105); Potassium 4.2 mmol/L (3.3-5.1); Sodium 139 mmol/L (133-145)
[2024-06-26 12:32] LABS: Free T4 (Free Thyroxine) 1.39 ng/dL (0.93-1.70)
[2024-06-26] MEDS: 0.9 % SODIUM CHLORIDE 1,000 ML IV ONE ×2 (12:39→15:13)
[2024-06-26 16:17] LABS: Amphetamine Screen,Urine None detected; Barbiturate Screen,Urine None detected; Benzodiazepines Screen,Urine None detected; Cannabinoid Screen,Urine None detected; Cocaine Screen,Urine None detected; Fentanyl, Urine Screen None Detected; Opiate Screen,Urine None detected; Oxycodone, Urine Screen None detected; Phencyclidine Screen,Urine None detected
[2024-06-26 16:26] LABS: Appearance,Urine CLEAR (Clear); Bacteria,Urine FEW /hpf (0); Bilirubin,Urine Negative (Negative); Color,Urine YELLOW; Glucose,Urine (UA) Negative (Negative); Ketones,Urine Negative (Negative); Leukocyte Esterase,Urine 75 /uL (Negative); Mucus,Urine FEW /hpf; Nitrate,Urine Negative (Negative); Protein,Urine Negative (Negative); Specific Gravity,Urine 1.011 (1.000-1.035); Urine Blood Negative (Negative); Urine RBC 3 /hpf (0-3); Urine Squamous Epithelial Cell 0 /hpf (0-4); Urine WBC 7 /hpf (0-4); Urobilinogen,Urine Negative
[2024-06-26] MEDS: cefTRIAXone 1 GM VIAL IV ONE (17:26)
[2024-06-26] MEDS ORDERED: METOCLOPRAMIDE 10 MG/2 ML VIAL IV PRN (19:07)
[2024-06-26] MEDS ORDERED: POTASSIUM CHLORIDE 40 MEQ in DEXTROSE 5% IN WATER 500 ML IV PRN (19:07)
[2024-06-26] MEDS ORDERED: ONDANSETRON 4 MG/2 ML VIAL IV PRN (19:07)
[2024-06-26] MEDS ORDERED: SENNOSIDES 1 TABLET PO PRN (19:07)
[2024-06-26] MEDS ORDERED: IPRATROPIUM/ALBUTEROL 3 ML AMPUL.NEB NEB PRN (19:07)
[2024-06-26] MEDS ORDERED: MAGNESIUM SULFATE 2 GM/50 ML BAG IV PRN (19:07)
[2024-06-26] MEDS ORDERED: POTASSIUM CHLORIDE 20 MEQ TABLET PO PRN ×2 (19:07)
[2024-06-26] MEDS ORDERED: POLYETHYLENE GLYCOL 3350 17 GM PACKET PO PRN (19:07)
[2024-06-26] MEDS: DOCUSATE SODIUM 100 MG CAPSULE PO SCH (20:08)
[2024-06-26] MEDS: cefTRIAXone 1 GM VIAL IV SCH (20:08)
[2024-06-26] MEDS: hydrALAZINE 20 MG/ML VIAL IV PRN (20:08)
[2024-06-26] MEDS: amLODIPine 5 MG TABLET PO SCH (20:08)
[2024-06-26] MEDS: 0.9 % SODIUM CHLORIDE 10 ML SYRINGE IV SCH (21:07)
[2024-06-26] MEDS: Brimonidine 0.15 % drops OP SCH (22:06)
[2024-06-26] MEDS: ALFUZOSIN 10 MG PO SCH (22:06)
[2024-06-27] MEDS: LABETALOL HCL 20 MG/4 ML VIAL IV PRN (00:10)
[2024-06-27 06:40] LABS: Basophils # (Auto) 0.04 K/mcL (0.00-0.30); Basophils % (Auto) 0.6 % (0.0-2.0); Eosinophils # (Auto) 0.27 K/mcL (0.00-0.70); Eosinophils % (Auto) 4.2 % (0.0-7.0); Hematocrit 35.6 % (40.1-51.0); Hemoglobin 11.6 g/dL (13.7-17.5); Lymphocytes # (Auto) 1.57 K/mcL (1.50-4.80); Lymphocytes % (Auto) 24.2 % (15.5-49.0); Mean Cell Volume 90.6 fL (80.0-100.0); Mean Corpuscular HGB Conc 32.6 g/dL (31.0-36.0); Mean Platelet Volume 10.1 fL (8.8-12.5); Monocytes # (Auto) 0.49 K/mcL (0.10-0.90); Monocytes % (Auto) 7.5 % (1.0-12.0); Neutrophils % (Auto) 63.5 % (38.0-78.0); Platelet Count 200 K/mcL (140-440); RBC 3.93 M/mcL (4.63-6.08); Red Cell Distribution Width 13.8 % (11.5-14.5); WBC 6.5 K/mcL (4.5-11.0)
[2024-06-27 06:44] LABS: ALT/SGPT 14 U/L (<40); AST/SGOT 19 U/L (<40); Albumin 3.9 gm/dL (3.2-5.2); Albumin/Globulin Ratio 1.1 (1.0-2.3); Alkaline Phosphatase 113 U/L (39-117); Bilirubin,Direct < 0.2 mg/dL (0-0.3); Bilirubin,Total 0.5 mg/dL (0.1-1.0); Blood Urea Nitrogen 20 mg/dL (8-23); Calcium 9.5 mg/dL (8.6-10.4); Carbon Dioxide 23 mmol/L (22-30); Chloride 104 mmol/L (96-108); Globulin 3.6 gm/dL (2.2-3.7); Glomerular Filtration Rate 36; Glucose 110 mg/dL (70-105); Lactate Dehydrogenase 182 U/L (135-225); Potassium 4.4 mmol/L (3.3-5.1); Sodium 139 mmol/L (133-145); Triglycerides 68 mg/dL (<150); Uric Acid 8.5 mg/dL (2.5-8.0)
[2024-06-27] MEDS: METOPROLOL SUCCINATE 25 MG TAB.XL.24H PO SCH ×2 (08:26→09:24)
[2024-06-27] MEDS: ASPIRIN 81 MG TAB.CHEW PO SCH (08:27)
[2024-06-27] MEDS: TIMOLOL 0.5% OPHTH DROPS BOTTLE 5ML OD SCH (08:27)
[2024-06-27] MEDS: ATORVASTATIN 20 MG TABLET PO SCH (08:27)
[2024-06-27] MEDS: prednisoLONE 1% OPHTH DROPS 1ML BOTTLE OD SCH (08:27)
[2024-06-27] MEDS: ENOXAPARIN 30 MG/0.3 ML SYRINGE SQ SCH (08:27)
[2024-06-27] MEDS ORDERED: METOPROLOL SUCCINATE 25 MG TAB.XL.24H PO SCH (09:00)
[2024-06-27] MEDS: AMPICILLIN SODIUM 1 GM in 0.9 % SODIUM CHLORIDE 50 ML IV SCH (13:44)
[2024-06-27] MEDS: OLANZapine 5 MG TABLET PO PRN (20:31)
[2024-06-27] MEDS: NORTRIPTYLINE 25 MG CAPSULE PO SCH (20:31)
[2024-06-27] MEDS: LORazepam 2 MG/ML VIAL IV PRN (21:43)
[2024-06-27] MEDS ORDERED: LORazepam 2 MG/ML VIAL IV SCH (22:00)
[2024-06-28] MEDS: traMADol 50 MG TABLET PO PRN (00:21)
[2024-06-28] MEDS: ACETAMINOPHEN 325 MG TABLET PO PRN (08:51)
[2024-06-28] MEDS: METOPROLOL SUCCINATE 25 MG TAB.XL.24H PO SCH (09:25)
[2024-06-28] MEDS: MELATONIN 3 MG TABLET PO SCH (19:09)
[2024-06-29 06:44] LABS: Blood Urea Nitrogen 24 mg/dL (8-23); Calcium 9.5 mg/dL (8.6-10.4); Carbon Dioxide 23 mmol/L (22-30); Chloride 103 mmol/L (96-108); Glomerular Filtration Rate 36; Glucose 95 mg/dL (70-105); Potassium 4.3 mmol/L (3.3-5.1); Sodium 140 mmol/L (133-145)
[2024-06-29] MEDS ORDERED: QUEtiapine 25 MG TABLET PO PRN (09:30)
[2024-06-29] MEDS: AMPICILLIN SODIUM 1 GM in 0.9 % SODIUM CHLORIDE 50 ML IV SCH (14:36)
== END 2024-06-30 12:15 | DRG 689 ==
LOC: ED 09:51 → MEDSUR 18:59
PROVIDERS: ADMIT Internal Medicine; ATTEND Internal Medicine